=== PATIENT | female | born 1990 | race African-American/Black ===

== ENCOUNTER 2016-08-19 12:02 | Emergency (ER) | payer OTHER ==
[2016-08-19 12:11] VITALS: BP 119/76; PULSE 88; TEMP 98.1; BMI 30.7
--- NOTE | 2016-08-19 12:31 | PDOC ---
*Physical Exam - Vital Signs Last Vital Signs Temp Pulse Resp BP Pulse Ox 98.1 F 88 18 119/76 98 08/19/16 12:08 08/19/16 12:08 08/19/16 12:08 08/19/16 12:08 08/19/16 12:08 ED Treatment Course - LABORATORY CBC & Chemistry Diagram: 08/19/16 12:36 08/19/16 12:36 Medical Decision Making - Medical Decision Making 08/19/16 12:31 Pt seen by Midlevel Provider under my direct supervision Ancillary studies reviewed I agree with plan as outlined by Midlevel Provider *DC/Admit/Observation/Transfer Diagnosis at time of Disposition: Abdominal pain during - Discharge Dispostion Disposition: HOME Condition at time of disposition: Improved - Referrals Referrals: Ayanna Thomas [Primary Care Provider] - - Patient Instructions Printed Discharge Instructions: DI for Abdominal Pain -- Early Additional Instructions: Your potassium was a little low and urine glucose was a little low which means you need to eat small frequent meals throughout the day. I recommend you follow up with her FIELD CASHIER and return to ED if symptoms return or worsen. Otherwise take Tylenol only for discomfort.
[2016-08-19] MEDS ORDERED: SODIUM CHLORIDE 1,000 ML IV STA (12:50)
[2016-08-19] MEDS ORDERED: ACETAMINOPHEN 500 MG TABLET (FP) PO ONE (12:50)
--- NOTE | 2016-08-19 12:50 | PDOC ---
History of Present Illness - General Chief Complaint: Pain Stated Complaint: ABD PAIN, CHEST PAIN Time Seen by Provider: 08/19/16 12:18 History Source: Patient Exam Limitations: No Limitations - History of Present Illness Travel History: No Initial Comments: 08/19/16 12:56 26-year-old female currently 12 weeks presents with lower abdominal pressure and cramping since yesterday. Patient also complaining of mild midsternal chest tightness without wheezing or cough chest pain or shortness of breath. Patient states had an ultrasound done last week with normal findings and has history of asthma but denies any wheezing or use of her inhaler. Patient denies recent travel, recent illness, recent change in diet, urinary complaints, bowel complaints, or vaginal discharge. Timing/Duration: reports: constant Quality: reports: mild, moderate, cramping Pain Radiation: reports: other (mid suprapubic) Aggravating Factors: worse with: None Alleviating Factors: worse with: None Past History - Past Medical History Allergies/Adverse Reactions: Allergies Allergy/AdvReac Type Severity Reaction Status Date / Time shellfish derived Allergy Verified 08/19/16 12:07 Home Medications: Ambulatory Orders Azithromycin [Zithromax 250mg Tablets -] 250 mg PO UTDICT #6 tab 04/14/16 Promethazine/Phenyleph/Codeine [Phenergan VC+Codeine Syrup] 5 ml PO QID PRN # 120 ml MDD 20 mLs 04/14/16 Guaifenesin/Codeine Phosphate [Virtussin AC Liquid] 5 ml PO Q6H PRN #118 ml MDD 20 ml 04/15/16 Asthma: Yes Cancer: No Cardiac Disorders: No Diabetes: No HTN: Yes Seizures: No Thyroid Disease: No Other medical history: lupus - Psycho/Social/Smoking Cessation Hx Anxiety: No Suicidal Ideation: No Smoking Status: No Smoking History: Never smoked Have you smoked in the past 12 months: No Number of Cigarettes Smoked Daily: 0 Information on smoking cessation initiated: No Hx Alcohol Use: No Drug/Substance Use Hx: No Substance Use Type: None Hx Substance Use Treatment: No Patient Lives Alone: No Lives with/in: parents Review of Systems - Review of Systems Able to Perform ROS?: Yes Constitutional: No: Symptoms Reported HEENTM: No: Symptoms Reported Respiratory: No: Symptoms reported Cardiac (ROS): Yes: Chest Tightness ABD/GI: Yes: Abdominal cramping. No: Nausea, Vomiting : No: Symptoms Reported Musculoskeletal: No: Symptoms Reported Integumentary: No: Symptoms Reported Neurological: No: Symptoms reported Endocrine: No: Symptoms Reported Hematologic/Lymphatic: No: Symptoms Reported *Physical Exam - Vital Signs Last Vital Signs Temp Pulse Resp BP Pulse Ox 98.1 F 88 18 119/76 98 08/19/16 12:08 08/19/16 12:08 08/19/16 12:08 08/19/16 12:08 08/19/16 12:08 - Physical Exam General Appearance: Yes: Nourished, Appropriately Dressed. No: Apparent Distress HEENT: negative: Pale Conjunctivae Respiratory/Chest: positive: Lungs Clear, Normal Breath Sounds. negative: Chest Tender, Respiratory Distress, Accessory Muscle Use Cardiovascular: positive: Regular Rhythm, Regular Rate. negative: Murmur Female Pelvic Exam: negative: discharge Gastrointestinal/Abdominal: positive: Normal Bowel Sounds, Soft, Tenderness ( mild epigastric and mid suprapubic, ). negative: Distended, Rebound Musculoskeletal: negative: CVA Tenderness Extremity: positive: Normal Capillary Refill. negative: Pedal Edema Integumentary: positive: Normal Color, Warm Neurologic: positive: Motor Strength 5/5 (ambulatory) ED Treatment Course - LABORATORY CBC & Chemistry Diagram: 08/19/16 12:36 08/19/16 12:36 Medical Decision Making - Medical Decision Making 08/19/16 13:09 Patient 12 weeks complaining of lower suprapubic pressure associated with chest tightness with taking a deep breath but denies shortness of breath cough or fever. Patient on exam had mild epigastric tenderness so short lower suprapubic tenderness without vaginal discharge or bleeding. Patient ordered for labs, urine, IV fluids, Tylenol and ultrasound. 08/19/16 14:35 Laboratory Tests 08/19/16 08/19/16 08/19/16 12:36 12:36 12:55 WBC 4.5 Hgb 10.2 L D Hct 30.0 L D Plt Count 147 D Neutrophils % 71.9 D Sodium 137 Potassium 3.4 L Chloride 104 Carbon Dioxide 22 Anion Gap 11 BUN 8 D Creatinine 0.5 L D Creat Clearance w eGFR > 60 Random Glucose 72 L Calcium 8.6 Total Bilirubin 0.3 D AST 17 D ALT 15 D Alkaline Phosphatase 38 L Total Protein 7.9 Albumin 3.4 Urine Ketones Negative Urine Nitrite Negative Ur Leukocyte Esterase Negative Urine HCG, Qual Positive Patient will be given a lunch tray due to low glucose and an orange juice secondary to low potassium. Ultrasound shows a single viable intrauterine gestation approximately 13 weeks 0 days. patient states feeling better after receiving Tylenol. Patient be discharged home to follow-up with her DISPENSARY ATTENDANT *DC/Admit/Observation/Transfer Diagnosis at time of Disposition: Abdominal pain during Qualifiers: Trimester: first trimester Qualified Code(s): O26.891 - Other specified related conditions, first trimester; R10.9 - Unspecified abdominal pain - Discharge Dispostion Disposition: HOME Condition at time of disposition: Improved - Referrals Referrals: Ayanna Thmoas [Primary Care Provider] - - Patient Instructions Printed Discharge Instructions: DI for Abdominal Pain -- Early Additional Instructions: Your potassium was a little low and urine glucose was a little low which means you need to eat small frequent meals throughout the day. I recommend you follow up with her DISPENSARY ATTENDANT and return to ED if symptoms return or worsen. Otherwise take Tylenol only for discomfort.
[2016-08-19 12:54] LABS: BASOPHIL 0.5 % (0-2.0); EOSINOPHIL 0.8 % (0-4.5); MCH 31.6 pg (25.7-33.7); MCHC 34.2 g/dl (32.0-36.0); MEAN CELL VOLUME 92.5 fl (80-96); MEAN PLT VOLUME 8.6 fl (7.5-11.1); NEUTROPHILS 71.9 % (42.8-82.8); PLATELET COUNT 147 K/MM3 (134-434); RDW 12.9 % (11.6-15.6); WHITE BLOOD COUNT 4.5 K/mm3 (4.0-10.0)
[2016-08-19] MEDS ORDERED: ACETAMINOPHEN 325 MG TABLET (FP) ONE (12:56)
[2016-08-19 13:16] LABS: ALBUMIN 3.4 g/dl (3.4-5.0); ALK PHOS 38 U/L (45-117); ANION GAP 11 (8-16); BILIRUBIN,TOTAL 0.3 mg/dL (0.2-1.0); CALCIUM 8.6 mg/dL (8.5-10.1); CO2 22 mmol/L (21-32); CREATININE 0.5 mg/dL (0.55-1.02); GLUCOSE,RANDOM 72 mg/dL (74-106); SGOT/AST 17 U/L (15-37); SGPT/ALT 15 U/L (12-78); TOT PROT 7.9 g/dl (6.4-8.2)
[2016-08-19 14:27] LABS: URINE APPEARANCE CLEAR; URINE BILIRUBIN NEGATIVE (NEGATIVE); URINE BLOOD NEGATIVE (NEGATIVE); URINE COLOR LTYELLOW; URINE GLUCOSE (UA) NEGATIVE (NEGATIVE); URINE KETONE NEGATIVE (NEGATIVE); URINE LEUK ESTERASE NEGATIVE (NEGATIVE); URINE NITRITE NEGATIVE (NEGATIVE); URINE PROTEIN NEGATIVE (NEGATIVE); URINE UROBILINOGEN NEGATIVE E.U./dl (0.2-1.0)
--- NOTE | 2016-08-23 10:53 | EKG ---
Test Reason : Blood Pressure : / mmHG Vent. Rate : 088 BPM Atrial Rate : 088 BPM P-R Int : 132 ms QRS Dur : 072 ms QT Int : 362 ms P-R-T Axes : 033 -02 031 degrees QTc Int : 438 ms NORMAL SINUS RHYTHM NORMAL ECG WHEN COMPARED WITH ECG OF 20-FEB-2015 11:37, NO SIGNIFICANT CHANGE WAS FOUND Confirmed by GORDY BARRON MD ([id number]) on 08/23/2016 10:53:12 AM Referred By: Confirmed By:GORDY BARRON MD
== END 2016-08-19 14:46 | disposition home or self-care (01) ==
LOC: JER 12:02
PROC: 3E0337Z Introduction of Electrolytic and Water Balance Substance into Peripheral Vein, Percutaneous Approach (ICD-10-PCS; principal; 2016-08-19)
DX: R10.9 Unspecified abdominal pain (principal); Z3A.12 12 weeks gestation of pregnancy
CPT/HCPCS: 36415; 76801-TC; 80053; 81003; 84703; 85025; 87086; 93005; 93010; 96360; 99283-25

== ENCOUNTER 2016-09-23 10:55 | Emergency (ER) | payer OTHER ==
[2016-09-23 10:59] VITALS: BMI 31.3
--- NOTE | 2016-09-23 11:34 | PDOC ---
History of Present Illness - General History Source: Patient Exam Limitations: No Limitations - History of Present Illness Initial Comments: 09/23/16 11:42 The patient is a 26-year-old woman A0, currently approximately 18 weeks , with a past medical history of hypertension, lupus and asthma who presents to the emergency department via walk-in for further evaluation of abdominal pain since this morning. No trauma. She describes her abdominal pain as a crampy in nature, intermittent and non-radiating in nature. She also reports an episode of clear vaginal discharge this morning. No blood. She was in this ED approximately 1 month ago, with similar symptoms. An ultrasound was performed and was normal. She denies associated symptoms of nausea, vomiting, diarrhea, constipation, dysuria, vaginal bleeding. No recent fevers, chills, generalized weakness, cough, chest pain, shortness of breath. Bedside ultrasound performed by Dr. Verito Acuña, revealed positive movement and a heart rate of 153 bpm. Allergies: Shellfish Past Surgical History: Caesarian Section (first child born via at gestational weeks; Social History: Never smoked. No EtOH and recreational drug use. Primary Care Physician: Dr. Ayanna Thomas Full Charge Bookkeeper: Does not recall name but knows he/she is affiliated with [facility]. <Neda Forrest - Last Filed: 09/23/16 13:11> - General History Source: Patient, Old Records Exam Limitations: No Limitations <Vertio Acuña - Last Filed: 09/23/16 13:16> - General Chief Complaint: Pain Stated Complaint: ABD CRAMPING (18 WKS ) Time Seen by Provider: 09/23/16 11:07 Past History <Neda Forrest - Last Filed: 09/23/16 13:11> - Past Medical History Asthma: Yes Cancer: No Cardiac Disorders: No Diabetes: No HTN: Yes Seizures: No Thyroid Disease: No Other medical history: LUPUS - Reproductive History Is Patient Now?: Yes (#): 2 Para: 1 Cervical CA: No Dysfunctional Uterine Bleeding: No Ectopic : No Endometrial CA: No Polycystic Ovaries: No Therapeutic (s) & number: No Tubal Ligation: No - Psycho/Social/Smoking Cessation Hx Anxiety: No Suicidal Ideation: No Smoking Status: No Smoking History: Never smoked Have you smoked in the past 12 months: No Number of Cigarettes Smoked Daily: 0 Hx Alcohol Use: No Drug/Substance Use Hx: No Substance Use Type: None Hx Substance Use Treatment: No <Verito Acuña - Last Filed: 09/23/16 13:16> - Past Medical History Allergies/Adverse Reactions: Allergies Allergy/AdvReac Type Severity Reaction Status Date / Time shellfish derived Allergy Verified 09/23/16 10:59 Home Medications: Ambulatory Orders Vit/Iron Fumarate/FA [ Tablet] 1 each PO DAILY 09/23/16 Terconazole [Terazol 7] 45 gm VG HS #3 cream.appl 09/23/16 Review of Systems - Review of Systems Able to Perform ROS?: Yes Comments:: 09/23/16 11:43 CONSTITUTIONAL: Absent: fever, no chills, no fatigue EYES: Absent: visual changes ENT: Absent: ear pain, no sore throat CARDIOVASCULAR: Absent: chest pain, no palpitations RESPIRATORY: Absent: cough, no SOB GI: Present: Present: Abdominal Pain. Absent: no nausea, no vomiting, no constipation, no diarrhea GENITOURINARY: Present: Vaginal discharge. Absent: dysuria, no frequency, no hematuria MUSCULOSKELETAL: Absent: back pain, no arthralgia, no myalgia SKIN: Absent: rash NEURO: Absent: headache <Neda Forrest - Last Filed: 09/23/16 13:11> *Physical Exam - Vital Signs Last Vital Signs Temp Pulse Resp BP Pulse Ox 98.5 F 97 H 20 127/74 100 09/23/16 10:56 09/23/16 10:56 09/23/16 10:56 09/23/16 10:56 09/23/16 10:56 - Physical Exam Comments: 09/23/16 11:44 GENERAL: Well-appearing, well-nourished. No apparent distress. HEENT: Normocephalic, atraumatic. PERRL, EOM intact. CARDIOVASCULAR: Normal S1, S2. Regular rate and rhythm. PULMONARY: Clear to auscultation bilaterally. ABDOMEN: Gravid. non-distended, non-tender. PELVIC: There is some thick whitish-greenish discharged. No CMT. Os is closed. EXTREMITIES: Normal ROM in all four extremities. No gross deformities. SKIN: Warm, dry. No rash NEUROLOGICAL: No focal neurological deficits. <ForrestNeda garza - Last Filed: 09/23/16 13:11> - Vital Signs Last Vital Signs Temp Pulse Resp BP Pulse Ox 98.5 F 97 H 20 127/74 100 09/23/16 10:56 09/23/16 10:56 09/23/16 10:56 09/23/16 10:56 09/23/16 10:56 <ArianneVerito - Last Filed: 09/23/16 13:16> ED Treatment Course - LABORATORY CBC & Chemistry Diagram: 09/23/16 11:35 09/23/16 11:35 - RADIOLOGY Radiograph Interpretation: 09/23/16 13:11 EXAM: US/OB LIMITED US IMPRESSION: There is a single live intrauterine with measurements corresponding to a gestational age of 18 weeks 2 days. A heart rate of 152 BPM was calculated. The placenta is posterior in location. An adequate amount of amniotic fluid is identified. The fetus is in a breech presentation at the present time. A cervical length of 3.5 cm was also measured. <Forrest,Neda - Last Filed: 09/23/16 13:11> - LABORATORY CBC & Chemistry Diagram: 09/23/16 11:35 09/23/16 11:35 <ArianneVerito - Last Filed: 09/23/16 13:16> Medical Decision Making - Medical Decision Making 09/23/16 12:10 Paged Full Charge Bookkeeper concert singer Dr. Noreen Olson at [phone]. 09/23/16 13:[address] Noreen Olson. <LonNeda - Last Filed: 09/23/16 13:11> - Medical Decision Making 09/23/16 11:38 26-year-old female at approximately 18 weeks 2 para 1 presents to the emergency Department with complaints of lower abdominal cramping and clear vaginal discharge since this morning. Focused bedside u/s shows IUP with FHR of 153. Differential diagnosis includes but is not limited to: Premature rupture of membranes, yeast infection, urinary tract infection, [place] contractions, round ligament pain. Plan: 1. Official obstetric ultrasound to examine the amount of amniotic fluid 2. Urine analysis 3. Obstetric consult for for an test 4. Pain management 5. Observe and reevaluate 09/23/16 13:13 Addendum: Labs were reviewed and are noted in the EMR. Obstetric u/s revealed a viable IUP at 18 weeks with FHR of 152 and a normal amount of amniotic fluid. I have discussed the case with OB concert singer. Likelihood is not PPROM but is yeast infection. Will discharge on terazol. Follow up with OB within 3-5 days. Return to the ED if Sx persist, worsen or new Sx arise. <Verito Acuña - Last Filed: 09/23/16 13:16> *DC/Admit/Observation/Transfer - Attestations Scribe Attestion: 09/23/16 11:44 Documentation prepared by Neda Forrest, acting as medical coding instructor for Verito Acuña MD. <Neda Forrest - Last Filed: 09/23/16 13:11> - Discharge Dispostion Admit: No - Attestations Physician Attestion: 09/23/16 11:40 I, Dr. Verito Acuña, attest that the scribes documentation that appears above has been prepared under my direction and personally reviewed by me in its entirety. I confirmed that the note above accurately reflects all work, treatment, procedures, and medical decision-making performed by me. <Verito Acuña - Last Filed: 09/23/16 13:16> Diagnosis at time of Disposition: Abdominal pain during , Yeast infection - Discharge Dispostion Disposition: HOME Condition at time of disposition: Stable - Prescriptions Prescriptions: Terconazole [Terazol 7] 45 gm VG HS #3 cream.appl - Patient Instructions Printed Discharge Instructions: DI for Vaginal Yeast Infection, DI for Abdominal Pain -- Early Additional Instructions: You are being treated for a vaginal yeast infection. You have been prescribed Terazolplace 1 applicator full in the vagina at nighttime for the next 3 nights. Please drink a lot of water and follow-up with your graphic editor within the next 3 days. Please return to the emergency department if your symptoms persist, worsen, or new symptoms arise.
[2016-09-23 12:13] LABS: BASOPHIL 0.5 % (0-2.0); EOSINOPHIL 2.1 % (0-4.5); MCH 31.8 pg (25.7-33.7); MCHC 34.3 g/dl (32.0-36.0); MEAN CELL VOLUME 92.7 fl (80-96); MEAN PLT VOLUME 8.6 fl (7.5-11.1); NEUTROPHILS 64.2 % (42.8-82.8); PLATELET COUNT 165 K/MM3 (134-434); RDW 13.2 % (11.6-15.6); WHITE BLOOD COUNT 4.3 K/mm3 (4.0-10.0)
[2016-09-23 12:20] LABS: URINE APPEARANCE CLEAR; URINE BILIRUBIN NEGATIVE (NEGATIVE); URINE BLOOD NEGATIVE (NEGATIVE); URINE COLOR YELLOW; URINE GLUCOSE (UA) NEGATIVE (NEGATIVE); URINE KETONE TRACE (NEGATIVE); URINE LEUK ESTERASE NEGATIVE (NEGATIVE); URINE NITRITE NEGATIVE (NEGATIVE); URINE UROBILINOGEN NEGATIVE E.U./dl (0.2-1.0)
[2016-09-23 12:23] LABS: COCKROFT - GAULT 290.8785; CREATININE 0.4 mg/dL (0.55-1.02)
[2016-09-23 12:25] LABS: URINE PROTEIN 1+ (NEGATIVE)
[2016-09-23 12:27] LABS: URINE MUCUS RARE; URINE RBC 1 /hpf (0-3); URINE WBC 1 /hpf (3-5)
[2016-09-23 13:25] VITALS: BP 134/71; PULSE 77; TEMP 97.9
== END 2016-09-23 13:28 | disposition home or self-care (01) ==
LOC: JER 10:55
DX: O98.812 Other maternal infectious and parasitic diseases complicating pregnancy, second trimester (principal); B37.3 Candidiasis of vulva and vagina; Z3A.18 18 weeks gestation of pregnancy
CPT/HCPCS: 36415; 76815; 80048; 81003; 81015; 85025; 86850; 86900; 86901; 87086; 87491; 87591; 99283-25

== ENCOUNTER 2016-11-20 08:15 | Emergency (ER) | payer OTHER ==
[2016-11-20 08:21] VITALS: BMI 31.3
[2016-11-20] MEDS ORDERED: DEXTROSE 5%-LACTATED RINGERS 1,000 ML IV SCH ×3 (10:00→13:01)
[2016-11-20] MEDS ORDERED: ONDANSETRON 4 MG/2 ML VIAL IVPB ONE (10:15)
[2016-11-20 10:23] LABS: BASOPHIL 0.3 % (0-2.0); EOSINOPHIL 0.8 % (0-4.5); MCH 32.2 pg (25.7-33.7); MCHC 34.4 g/dl (32.0-36.0); MEAN CELL VOLUME 93.6 fl (80-96); MEAN PLT VOLUME 8.3 fl (7.5-11.1); NEUTROPHILS 74.6 % (42.8-82.8); PLATELET COUNT 137 K/MM3 (134-434); RDW 12.6 % (11.6-15.6); WHITE BLOOD COUNT 3.6 K/mm3 (4.0-10.0)
[2016-11-20 10:33] VITALS: PULSE 70
[2016-11-20 10:48] LABS: ALBUMIN 2.7 g/dl (3.4-5.0); ALK PHOS 46 U/L (45-117); ANION GAP 10 (8-16); BILIRUBIN,TOTAL 0.3 mg/dL (0.2-1.0); CALCIUM 7.9 mg/dL (8.5-10.1); CO2 24 mmol/L (21-32); CREATININE 0.3 mg/dL (0.55-1.02); GLUCOSE,RANDOM 112 mg/dL (74-106); SGOT/AST 23 U/L (15-37); SGPT/ALT 18 U/L (12-78); TOT PROT 6.7 g/dl (6.4-8.2)
[2016-11-20] MEDS: POTASSIUM CHLORIDE TABS 20 MEQ TABLET.ER (FP) PO SCH ×2 (14:30→16:30)
[2016-11-20 15:52] VITALS: BP 114/75; TEMP 97.8
[2016-11-20 18:27] LABS: ANION GAP 9 (8-16); CALCIUM 8.3 mg/dL (8.5-10.1); CO2 26 mmol/L (21-32); CREATININE 0.4 mg/dL (0.55-1.02); GLUCOSE,RANDOM 81 mg/dL (74-106)
== END 2016-11-20 18:40 | disposition home or self-care (01) ==
LOC: JER 08:15
DX: O26.892 Other specified pregnancy related conditions, second trimester (principal); R10.30 Lower abdominal pain, unspecified; Z3A.26 26 weeks gestation of pregnancy
CPT/HCPCS: 36415; 80048; 80053; 85025; 99282-25

== ENCOUNTER 2017-01-16 18:22 | Emergency (ER) | payer OTHER ==
[2017-01-16 18:29] VITALS: BMI 30.3
--- NOTE | 2017-01-16 19:22 | PDOC ---
History of Present Illness - General Chief Complaint: Pain Stated Complaint: PCP SENT/[facility] Time Seen by Provider: 01/16/17 18:29 - History of Present Illness Initial Comments: 01/16/17 19:15 Ms. Hamlin is a 26 year old female with a significant past medical history of recent vaginal deliver with preeclampsia who presents to the emergency department with a 1 day history of fever with pain to the L aspect of her neck from the base of her skull to her upper shoulder. She also reports 30 minutes of tingling to both upper arms and a "squeezing" sensation. Of note she received an epidural during the . The patient denies chest pain, shortness of breath, headache and dizziness. Denies chills, nausea, vomit, diarrhea and constipation. Denies dysuria, frequency, urgency and hematuria. Allergies: Shellfish Past surgical history: Prior Past History - Past Medical History Allergies/Adverse Reactions: Allergies Allergy/AdvReac Type Severity Reaction Status Date / Time shellfish derived Allergy Verified 01/16/17 18:25 Home Medications: Ambulatory Orders Vit/Iron Fumarate/FA [ Tablet] 1 each PO DAILY 09/23/16 Terconazole [Terazol 7] 45 gm VG HS #3 cream.appl 09/23/16 Asthma: Yes Cancer: No Cardiac Disorders: No Diabetes: No HTN: Yes (border line) Seizures: No Thyroid Disease: No Other medical history: lupus - Reproductive History (#): 2 Para: 1 Cervical CA: No Dysfunctional Uterine Bleeding: No Ectopic : No Endometrial CA: No Polycystic Ovaries: No Therapeutic (s) & number: No Tubal Ligation: No - Psycho/Social/Smoking Cessation Hx Anxiety: No Suicidal Ideation: No Smoking Status: No Smoking History: Never smoked Have you smoked in the past 12 months: No Number of Cigarettes Smoked Daily: 0 Information on smoking cessation initiated: No Hx Alcohol Use: No Drug/Substance Use Hx: No Substance Use Type: None Hx Substance Use Treatment: No Review of Systems - Review of Systems Comments:: 01/16/17 19:22 GENERAL/CONSTITUTIONAL: +Fever reported. No chills. No weakness. HEAD, EYES, EARS, NOSE AND THROAT: No change in vision. No ear pain or discharge. No sore throat. CARDIOVASCULAR: No chest pain or shortness of breath RESPIRATORY: No cough, wheezing, or hemoptysis. GASTROINTESTINAL: No nausea, vomiting, diarrhea or constipation. GENITOURINARY: No dysuria, frequency, or change in urination. MUSCULOSKELETAL: +Pain reported to the left side of her neck with movement. She reports this was somewhat relieved by massage last night but is hurting again. No joint or muscle swelling or pain. No back pain. SKIN: No rash NEUROLOGIC: +Tingling bilaterally to upper arms. No headache, vertigo, loss of consciousness, or change in strength. ENDOCRINE: No increased thirst. No abnormal weight change HEMATOLOGIC/LYMPHATIC: No anemia, easy bleeding, or history of blood clots. ALLERGIC/IMMUNOLOGIC: No hives or skin allergy. *Physical Exam - Vital Signs Last Vital Signs Temp Pulse Resp BP Pulse Ox 99.3 F 86 20 147/102 100 01/16/17 18:25 01/16/17 18:25 01/16/17 18:25 01/16/17 18:25 01/16/17 18:25 - Physical Exam Comments: 01/16/17 19:24 GENERAL: Awake, alert, and fully oriented, in no acute distress HEAD: No signs of trauma, normocephalic, atraumatic EYES: PERRLA, EOMI, sclera anicteric, conjunctiva clear ENT: Auricles normal inspection, hearing grossly normal, nares patent, oropharynx clear without exudates. Moist mucosa NECK: Normal ROM, supple, no lymphadenopathy, JVD, or masses LUNGS: No distress, speaks full sentences, clear to auscultation bilaterally HEART: Regular rate and rhythm, normal S1 and S2, no murmurs, rubs or gallops, peripheral pulses normal and equal bilaterally. ABDOMEN: Soft, nontender, normoactive bowel sounds. No guarding, no rebound. No masses EXTREMITIES: Normal inspection, Normal range of motion, no edema. No clubbing or cyanosis. NEUROLOGICAL: Cranial nerves II through XII grossly intact. Normal speech, normal gait, no focal sensorimotor deficits SKIN: Warm, Dry, normal turgor, no rashes or lesions noted. Medical Decision Making - Medical Decision Making 01/16/17 19:25 Patient signed out after initial history / exam to oncoming team for further care. *DC/Admit/Observation/Transfer Diagnosis at time of Disposition: Neck pain
[2017-01-16 19:27] LABS: BASOPHIL 0.6 % (0-2.0); MCH 31.4 pg (25.7-33.7); MCHC 33.3 g/dl (32.0-36.0); MEAN CELL VOLUME 94.1 fl (80-96); MEAN PLT VOLUME 8.4 fl (7.5-11.1); NEUTROPHILS 51.2 % (42.8-82.8); PLATELET COUNT 213 K/MM3 (134-434); RDW 12.9 % (11.6-15.6); WHITE BLOOD COUNT 3.9 K/mm3 (4.0-10.0)
[2017-01-16 19:47] LABS: MAGNESIUM 1.4 mg/dL (1.8-2.4); URIC ACID 5.3 mg/dL (2.6-7.2)
[2017-01-16 19:50] LABS: ANION GAP 8 (8-16); BILIRUBIN,TOTAL 0.4 mg/dL (0.2-1.0); CALCIUM 9.2 mg/dL (8.5-10.1); CO2 27 mmol/L (21-32); CREATININE 0.6 mg/dL (0.55-1.02); GLUCOSE,RANDOM 90 mg/dL (74-106); SGOT/AST 28 U/L (15-37); SGPT/ALT 24 U/L (12-78); TOT PROT 7.7 g/dl (6.4-8.2)
[2017-01-16 19:51] LABS: ALK PHOS 75 U/L (45-117)
[2017-01-16] MEDS ORDERED: POTASSIUM CHLORIDE TABS 20 MEQ TABLET.ER (FP) PO ONE ×4 (20:16→22:20)
[2017-01-16 20:34] LABS: URINE APPEARANCE CLEAR; URINE BILIRUBIN NEGATIVE (NEGATIVE); URINE BLOOD 3+ (NEGATIVE); URINE COLOR LTYELLOW; URINE GLUCOSE (UA) NEGATIVE (NEGATIVE); URINE KETONE NEGATIVE (NEGATIVE); URINE LEUK ESTERASE TRACE (NEGATIVE); URINE NITRITE NEGATIVE (NEGATIVE); URINE UROBILINOGEN NEGATIVE mg/dL (0.2-1.0)
[2017-01-16 20:43] LABS: URINE PROTEIN 1+ (NEGATIVE)
[2017-01-16 20:49] LABS: CALCIUM OXALATE CRYSTALS RARE /hpf (NONE SEEN); URINE BACTERIA RARE /hpf (NONE SEEN); URINE MUCUS RARE; URINE RBC 4 /hpf (0-3); URINE WBC 6 /hpf (3-5)
[2017-01-16] MEDS ORDERED: KCL 10 MEQ IVPB 100 ML IVPB ONE ×2 (21:10→22:20)
[2017-01-16] MEDS ORDERED: CEPHALEXIN MONOHYDRATE 500 MG CAPSULE (UD) PO ONE (21:18)
[2017-01-16] MEDS: KCL 10 MEQ IVPB 100 ML IVPB SCH ×2 (21:21→22:19)
--- NOTE | 2017-01-16 22:00 | PDOC ---
Attending Attestation - Resident Resident Name: Dante Wen - ED Attending Attestation I have performed the following: I have examined & evaluated the patient, The case was reviewed & discussed with the resident, I agree w/resident's findings & plan, Exceptions are as noted - HPI HPI: 26 yo F recently , discharged home yesterday presents with neck pain, fever, arm pain. she sttaes that she has been having tingling to both arms/ hands and a squeezing sensation to the R upper arm. She states she received an epidural during her delivery, and was injected twice. She denies cough, cp, SOB , leg swelling. She had preeclampsia during her , and notes that the swelling in her legs improved after deliver. Denies headache, weakness. - Physicial Exam PE: GENERAL: Awake, alert, and fully oriented, in no acute distress HEAD: No signs of trauma EYES: PERRLA, EOMI, sclera anicteric, conjunctiva clear ENT: Auricles normal inspection, hearing grossly normal, nares patent, oropharynx clear without exudates. Moist mucosa NECK: Normal ROM, supple, no lymphadenopathy, JVD, or masses LUNGS: Breath sounds equal, clear to auscultation bilaterally. No wheezes, and no crackles HEART: Regular rate and rhythm, normal S1 and S2, no murmurs, rubs or gallops ABDOMEN: Soft, nontender, normoactive bowel sounds. No guarding, no rebound. No masses EXTREMITIES: Normal range of motion, no edema. No clubbing or cyanosis. No cords, erythema, or tenderness NEUROLOGICAL: Cranial nerves II through XII grossly intact. Normal speech, normal gait. Motor and sensation intact. SKIN: Warm, Dry, normal turgor, no rashes or lesions noted. SPINE: No midline tenderness. +Tenderness to paraspinal soft tissue on L side, cervical region. No skin changes overlying the entire spine. - Medical Decision Making Patient with neck pain, tingling, fever, elevated BP s/p recent vaginal delivery. DDx includes UTI, preeclampsia, spinal epidural abscess. Will obtain preeclampsia labs, UA, and plan for CT c-spine to further evaluate. Endorsed to Dr. Weber at 7pm shift change.
[2017-01-16] MEDS ORDERED: morphine CARPU-JECT 2 MG/1 ML DISP.SYRIN IVPUSH ONE (22:19)
[2017-01-16] MEDS ORDERED: morphine CARPU-JECT 10 MG/1 ML DISP.SYRIN ONE (22:20)
[2017-01-17] MEDS ORDERED: CEPHALEXIN MONOHYDRATE 250 MG CAPSULE (FP) ONE (00:48)
[2017-01-17] MEDS ORDERED: CEFTRIAXONE 50 ML ONE (01:01)
[2017-01-17] MEDS ORDERED: METOCLOPRAMIDE HCL INJECTION 10 MG/2 ML VIAL IVPUSH ONE (01:51)
[2017-01-17] MEDS ORDERED: POTASSIUM CHLORIDE TABS 20 MEQ TABLET.ER (FP) PO ONE ×2 (01:51→02:29)
[2017-01-17] MEDS ORDERED: METOCLOPRAMIDE HCL INJECTION 10 MG/2 ML VIAL ONE (01:54)
--- NOTE | 2017-01-17 02:00 | PDOC ---
*Physical Exam - Vital Signs Last Vital Signs Temp Pulse Resp BP Pulse Ox 99.3 F 86 20 147/102 100 01/16/17 18:25 01/16/17 18:25 01/16/17 18:25 01/16/17 18:25 01/16/17 18:25 ED Treatment Course - LABORATORY CBC & Chemistry Diagram: 01/16/17 19:00 01/17/17 00:57 - ADDITIONAL ORDERS Additional order review: Laboratory Results 01/17/17 01/16/17 01/16/17 00:57 20:24 19:00 Sodium Potassium 3.2 L Chloride Carbon Dioxide Anion Gap BUN Creatinine Creat Clearance w eGFR Random Glucose Uric Acid 5.3 Calcium Magnesium 1.4 L Total Bilirubin AST ALT Alkaline Phosphatase Total Protein Albumin Urine Color Ltyellow Urine Appearance Clear Urine pH 7.0 D Ur Specific [place] 1.015 Urine Protein 1+ H Urine Glucose (UA) Negative Urine Ketones Negative Urine Blood 3+ H Urine Nitrite Negative Urine Bilirubin Negative Urine Urobilinogen Negative Ur Leukocyte Esterase Trace Urine RBC 4 Urine WBC 6 Ur Epithelial Cells Rare Calcium Oxalate Crystal Rare Urine Bacteria Rare Urine Mucus Rare 01/16/17 19:00 Sodium 139 Potassium 2.8 L* Chloride 104 Carbon Dioxide 27 Anion Gap 8 BUN 6 L D Creatinine 0.6 D Creat Clearance w eGFR > 60 Random Glucose 90 Uric Acid Calcium 9.2 Magnesium Total Bilirubin 0.4 D AST 28 D ALT 24 D Alkaline Phosphatase 75 D Total Protein 7.7 Albumin 3.0 L Urine Color Urine Appearance Urine pH Ur Specific [place] Urine Protein Urine Glucose (UA) Urine Ketones Urine Blood Urine Nitrite Urine Bilirubin Urine Urobilinogen Ur Leukocyte Esterase Urine RBC Urine WBC Ur Epithelial Cells Calcium Oxalate Crystal Urine Bacteria Urine Mucus 01/16/17 19:00 RBC 3.74 D MCV 94.1 MCHC 33.3 RDW 12.9 MPV 8.4 Neutrophils % 51.2 D Lymphocytes % 34.0 D Monocytes % 12.2 H D Eosinophils % 2.0 D Basophils % 0.6 - Medications Given in the ED: ED Medications Discontinued Medications Generic Name Dose Route Start Last Admin Trade Name Freq PRN Reason Stop Dose Admin Ceftriaxone Sodium 1,000 mg 01/17/17 00:49 01/17/17 01:06 Rocephin - IVPB 01/17/17 00:50 1,000 mg ONCE ONE Administration Cephalexin HCl 500 mg 01/16/17 21:18 01/17/17 00:50 Keflex - PO 01/16/17 21:19 Not Given ONCE ONE Potassium Chloride 100 mls @ 100 mls/hr 01/16/17 20:30 01/16/17 22:19 Potassium Chloride 10 Meq Premix Ivpb - IVPB 01/16/17 22:29 100 mls/hr Q60M GUY Administration Morphine Sulfate 4 mg 01/16/17 22:19 01/16/17 22:20 Morphine Injection - IVPUSH 01/16/17 22:20 4 mg ONCE ONE Administration Potassium Chloride 40 meq 01/16/17 20:16 01/16/17 21:21 K-Dur - PO 01/16/17 20:17 40 meq ONCE ONE Administration Potassium Chloride 40 meq 01/16/17 22:16 01/16/17 22:28 K-Dur - PO 01/16/17 22:17 40 meq ONCE ONE Administration Medical Decision Making - Medical Decision Making 01/17/17 01:56 Pt feeling better. Numbness of hands and pain to back of neck have resolved after repletion of Potassium. Pt to be discharged. Advised to drink a glass of orange juice or a banana daily for a few days. *DC/Admit/Observation/Transfer Diagnosis at time of Disposition: Neck pain, Hypokalemia UTI (urinary tract infection) Qualifiers: Urinary tract infection type: site unspecified Hematuria presence: without hematuria Qualified Code(s): N39.0 - Urinary tract infection, site not specified - Referrals Referrals: Ayanna Thomas [Primary Care Provider] - - Patient Instructions Printed Discharge Instructions: DI for Hypokalemia, DI for Urinary Tract Infection (UTI) Additional Instructions: Please drink a glass of OJ or eat a banana daily for a few days. Take antibiotic as directed. - Post Discharge Activity
[2017-01-17 03:05] VITALS: BP 114/75; PULSE 82; TEMP 98.6
--- NOTE | 2017-01-19 09:07 | EKG ---
Test Reason : Blood Pressure : / mmHG Vent. Rate : 073 BPM Atrial Rate : 073 BPM P-R Int : 138 ms QRS Dur : 084 ms QT Int : 386 ms P-R-T Axes : 046 -26 039 degrees QTc Int : 425 ms NORMAL SINUS RHYTHM LEFT AXIS DEVIATION WHEN COMPARED WITH ECG OF 19-AUG-2016 12:16, NO SIGNIFICANT CHANGE WAS FOUND Confirmed by HUSEYIN SCOTT MD ([id number]) on 01/19/2017 9:06:48 AM Referred By: Confirmed By:HUSEYIN SCOTT MD
== END 2017-01-17 03:05 | disposition home or self-care (01) ==
LOC: JER 18:22
PROC: 3E0337Z Introduction of Electrolytic and Water Balance Substance into Peripheral Vein, Percutaneous Approach (ICD-10-PCS; principal; 2017-01-16)
PROC: 3E03329 Introduction of Other Anti-infective into Peripheral Vein, Percutaneous Approach (ICD-10-PCS; 2017-01-16)
PROC: 3E033GC Introduction of Other Therapeutic Substance into Peripheral Vein, Percutaneous Approach (ICD-10-PCS; 2017-01-16)
DX: N39.0 Urinary tract infection, site not specified (principal); E87.6 Hypokalemia; M54.2 Cervicalgia
CPT/HCPCS: 36415; 80053; 81003; 81015; 83735; 84132; 84550; 85025; 96365; 96375; 99283-25

== ENCOUNTER 2017-05-14 20:40 | Observation (INO) | payer OTHER ==
[2017-05-14 21:26] VITALS: BMI 30.7
--- NOTE | 2017-05-14 21:38 | PDOC ---
History of Present Illness <Da George - Last Filed: 05/14/17 22:58> - History of Present Illness Initial Comments: 05/14/17 21:32 "The patient is a 27 year old female, with a significant past medical history of asthma, lupus, pre-hypertension, who presents to the emergency department s/ p taking approx. 10-20 Excedrin with wine. Denies any other coingestions. She estimates that she took the pills at around 7PM. The patients reports she is going through a difficult time after her most recent and states she was attempting to harm herself. Pt reports increased stressors at home, including having to take care of her premature child and difficulties with her children's father. She reports prior suicide attempts and has seen psych in the past. Pt currently endorses SI. Pt denies any complaints at this time. Denies CP/SOB. Denies JUNG/N/V. Denies abd pain, nausea, vomiting, diarrhea or constipation. Allergies: Shellfish Past surgical history: Primary Care Physician: Ayanna Thomas <Shane Pearl - Last Filed: 05/14/17 23:52> - General Chief Complaint: Overdose Stated Complaint: Psychiatric Time Seen by Provider: 05/14/17 21:01 Past History <Da George - Last Filed: 05/14/17 22:58> - Past Medical History Asthma: Yes Cancer: No Cardiac Disorders: No COPD: No Diabetes: No HTN: Yes Psychiatric Problems: Yes (depression) Seizures: No Thyroid Disease: No - Reproductive History (#): 2 Para: 1 Cervical CA: No Dysfunctional Uterine Bleeding: No Ectopic : No Endometrial CA: No Polycystic Ovaries: No Therapeutic (s) & number: No Tubal Ligation: No - Suicide/Smoking/Psychosocial Hx Smoking Status: No Smoking History: Never smoked Have you smoked in the past 12 months: No Number of Cigarettes Smoked Daily: 0 Information on smoking cessation initiated: No Hx Alcohol Use: No Drug/Substance Use Hx: No Substance Use Type: None Hx Substance Use Treatment: No <Shane Pearl - Last Filed: 05/14/17 23:52> - Past Medical History Allergies/Adverse Reactions: Allergies Allergy/AdvReac Type Severity Reaction Status Date / Time shellfish derived Allergy Verified 05/14/17 21:26 Home Medications: Ambulatory Orders Cephalexin Monohydrate [Keflex -] 500 mg PO BID #20 capsule 01/17/17 Review of Systems - Review of Systems Comments:: 05/14/17 21:36 " GENERAL/CONSTITUTIONAL: No fever or chills. No weakness. HEAD, EYES, EARS, NOSE AND THROAT: No change in vision. No ear pain or discharge. No sore throat. CARDIOVASCULAR: No chest pain or shortness of breath. RESPIRATORY: No cough, wheezing, or hemoptysis. GASTROINTESTINAL: No nausea, vomiting, diarrhea or constipation. GENITOURINARY: No dysuria, frequency, or change in urination. MUSCULOSKELETAL: No joint or muscle swelling or pain. No neck or back pain. SKIN: No rash NEUROLOGIC: No headache, vertigo, loss of consciousness, or change in strength/ sensation. ENDOCRINE: No increased thirst. No abnormal weight change. HEMATOLOGIC/LYMPHATIC: No anemia, easy bleeding, or history of blood clots. ALLERGIC/IMMUNOLOGIC: No hives or skin allergy. " <Shane Pearl - Last Filed: 05/14/17 23:52> *Physical Exam - Vital Signs Last Vital Signs Temp Pulse Resp BP Pulse Ox 98.0 F 78 18 130/90 100 05/14/17 20:58 05/14/17 20:58 05/14/17 20:58 05/14/17 20:58 05/14/17 20:58 <Da George - Last Filed: 05/14/17 22:58> - Vital Signs Last Vital Signs Temp Pulse Resp BP Pulse Ox 98.0 F 78 18 130/90 100 05/14/17 20:58 05/14/17 20:58 05/14/17 20:58 05/14/17 20:58 05/14/17 20:58 - Physical Exam Comments: 05/14/17 21:36 "GENERAL: + Tearful. Awake, alert, and fully oriented, in no acute distress HEAD: No signs of trauma EYES: PERRLA, EOMI, sclera anicteric, conjunctiva clear ENT: Auricles normal inspection, hearing grossly normal, nares patent, oropharynx clear without exudates. Moist mucosa NECK: Nontender, no stepoffs, Normal ROM, supple, no lymphadenopathy, JVD, or masses LUNGS: Breath sounds equal, clear to auscultation bilaterally. No wheezes , and no crackles HEART: Regular rate and rhythm, normal S1 and S2, no murmurs, rubs or gallops ABDOMEN: Soft, nontender, normoactive bowel sounds. No guarding, no rebound. No masses EXTREMITIES: Normal range of motion, no edema. No clubbing or cyanosis. No cords , erythema, or tenderness NEUROLOGICAL: Cranial nerves II through XII intact. 5/5 strength and sensation in all extremities, Normal speech, normal gait SKIN: Warm, Dry, normal turgor, no rashes or lesions noted. " <Shane Pearl - Last Filed: 05/14/17 23:52> ED Treatment Course - LABORATORY CBC & Chemistry Diagram: 05/14/17 21:38 05/14/17 21:38 - ADDITIONAL ORDERS Additional order review: Laboratory Results 05/14/17 05/14/17 05/14/17 21:45 21:45 21:38 Sodium Potassium Chloride Carbon Dioxide Anion Gap BUN Creatinine Creat Clearance w eGFR Random Glucose Lactic Acid Calcium Total Bilirubin AST ALT Alkaline Phosphatase Total Protein Albumin TSH 4.78 H D Urine Color Ltyellow Urine Appearance Clear Urine pH 7.0 Ur Specific [place] 1.013 Urine Protein 1+ H Urine Glucose (UA) Negative Urine Ketones Negative Urine Blood Negative Urine Nitrite Negative Urine Bilirubin Negative Urine Urobilinogen Negative Urine WBC (Auto) 7 Urine RBC (Auto) <1 Ur Epithelial Cells Rare Urine Bacteria Rare Urine Mucus Rare Salicylates Opiates Screen Negative Methadone Screen Negative Acetaminophen Barbiturate Screen Negative Phencyclidine Screen Negative Ur Amphetamines Screen Negative MDMA (Ecstasy) Screen Negative Benzodiazepines Screen Negative Cocaine Screen Negative U Marijuana (THC) Screen Negative 05/14/17 05/14/17 05/14/17 21:38 21:38 21:38 Sodium 140 Potassium 3.3 L Chloride 107 Carbon Dioxide 25 Anion Gap 8 BUN 11 D Creatinine 0.8 D Creat Clearance w eGFR > 60 Random Glucose 99 Lactic Acid 0.9 Calcium 8.5 Total Bilirubin 0.3 D AST 19 D ALT 15 D Alkaline Phosphatase 47 D Total Protein 8.1 Albumin 3.7 D TSH Urine Color Urine Appearance Urine pH Ur Specific [place] Urine Protein Urine Glucose (UA) Urine Ketones Urine Blood Urine Nitrite Urine Bilirubin Urine Urobilinogen Urine WBC (Auto) Urine RBC (Auto) Ur Epithelial Cells Urine Bacteria Urine Mucus Salicylates 4.827 Opiates Screen Methadone Screen Acetaminophen 6.321 L Barbiturate Screen Phencyclidine Screen Ur Amphetamines Screen MDMA (Ecstasy) Screen Benzodiazepines Screen Cocaine Screen U Marijuana (THC) Screen 05/14/17 21:38 RBC 3.67 MCV 91.9 MCHC 34.3 RDW 13.2 MPV 8.8 Neutrophils % 61.6 D Lymphocytes % 28.0 Monocytes % 7.4 Eosinophils % 2.3 Basophils % 0.7 <Da George - Last Filed: 05/14/17 22:58> - LABORATORY CBC & Chemistry Diagram: 05/14/17 21:38 05/14/17 21:38 <Shane Pearl - Last Filed: 05/14/17 23:52> Medical Decision Making - Medical Decision Making 05/14/17 21:36 27 F with overdose on excedrin (tylenol, aspirin, caffeine). Pt reports maximum of 20 tablets were taken. This comes out to 5g tylenol, 5g aspirin, and 1.3g caffeine. Pt well appearing at this time. Will check tylenol and salicylate levels now and at 4 hours. - Labs - 4hr tylenol and salicylate levels - Administer NAC if needed - 1 to 1 observation - Psych consult when medically cleared <Shane Pearl - Last Filed: 05/14/17 23:52> *DC/Admit/Observation/Transfer - Attestations Scribe Attestion: 05/14/17 22:58 Documentation prepared by Da George, acting as biomedical engineering professor for Shane Pearl MD. <Da George - Last Filed: 05/14/17 22:58> - Discharge Dispostion Admit: Yes - Attestations Physician Attestion: 05/14/17 23:51 I, Dr. Shane Pearl MD, attest that this document has been prepared under my direction and personally reviewed by me in its entirety. I further attest, that it accurately reflects all work, treatment, procedures and medical decision -making performed by me. <Shane Pearl - Last Filed: 05/14/17 23:52> Diagnosis at time of Disposition: Overdose
[2017-05-14 21:57] LABS: BASO % 0.7 % (0-2.0); EOS # 0.1 # (0-4.5); EOS % 2.3 % (0-4.5); MCH 31.5 pg (25.7-33.7); MCHC 34.3 g/dl (32.0-36.0); MEAN CELL VOLUME 91.9 fl (80-96); MEAN PLT VOLUME 8.8 fl (7.5-11.1); MONO # 0.3 # (3.8-10.2); NEUT # 2.1 # (42.8-82.8); NEUT % 61.6 % (42.8-82.8); PLATELET COUNT 179 K/MM3 (134-434); RDW 13.2 % (11.6-15.6); WHITE BLOOD COUNT 3.4 K/mm3 (4.0-10.0)
[2017-05-14 22:20] LABS: ALBUMIN 3.7 g/dl (3.4-5.0); ALK PHOS 47 U/L (45-117); ANION GAP 8 (8-16); BILIRUBIN,TOTAL 0.3 mg/dL (0.2-1.0); CALCIUM 8.5 mg/dL (8.5-10.1); CO2 25 mmol/L (21-32); CREATININE 0.8 mg/dL (0.55-1.02); GLUCOSE,RANDOM 99 mg/dL (74-106); SGOT/AST 19 U/L (15-37); SGPT/ALT 15 U/L (12-78); TOT PROT 8.1 g/dl (6.4-8.2)
[2017-05-14 22:23] LABS: URINE APPEARANCE CLEAR; URINE BILIRUBIN NEGATIVE (NEGATIVE); URINE BLOOD NEGATIVE (NEGATIVE); URINE COLOR LTYELLOW; URINE GLUCOSE (UA) NEGATIVE (NEGATIVE); URINE KETONE NEGATIVE (NEGATIVE); URINE LEUK ESTERASE TRACE (NEGATIVE); URINE NITRITE NEGATIVE (NEGATIVE); URINE UROBILINOGEN NEGATIVE mg/dL (0.2-1.0)
[2017-05-14 22:24] LABS: SALICYLATE 4.827 mg/dl (0.0-30.0)
[2017-05-14 22:31] LABS: URINE MARIJUANA THC NEGATIVE ng/ml (CUTOFF=50)
[2017-05-14 22:33] LABS: URINE PROTEIN 1+ (NEGATIVE)
[2017-05-14 22:36] LABS: URINE BACTERIA RARE /hpf (NONE SEEN); URINE MUCUS RARE; URINE RBC <1 /hpf (0-3); URINE WBC 7 /hpf (3-5)
--- NOTE | 2017-05-15 00:24 | HP ---
CHIEF COMPLAINT: suicidal attempt PCP: Martha Jackson HISTORY OF PRESENT ILLNESS: 27 year old AA female with Pmhx of lupus and asthma presented to ED fter she tried to swallow 10 tab Excedrin. was admitted to obs fr further evaluation. in Ed patient reports that she feels over whelmed by the holidays, but she denies any depression ,or anxiety. she reports previous attemept by swallowing anti depressant meds. She denies any visual or auditory halucinations, she denies thinking of hearting other peope. She does not have difficulty falling asleep, she wake up multiple times at night due to her 4 month old baby. She reports feeling fatigue and out of energy some days. She reports drinking bottle of wine. She denies any other symptoms, Denies any headache, blurry vision , chest pain, sob , palpitation, abdominal pain , N/V/D/C. she denies any urinary symptoms. ER course was notable for: (1) Acohol level (2)Urine toxicology (3) Acetaminophen, salicylic acid level Recent Travel:denies PAST MEDICAL HISTORY: Lupus, Asthma PAST SURGICAL HISTORY: Social History: Smoking:denies Alcohol:bottle of wine every 2 weeks Drugs: tried marijuana as teenage. Family History: Allergies shellfish derived Allergy (Verified 05/14/17 21:26) HOME MEDICATIONS: Home Medications Medication Instructions Recorded Cephalexin Monohydrate [Keflex -] 500 mg PO BID #20 capsule 01/17/17 REVIEW OF SYSTEMS CONSTITUTIONAL: Absent: fever, chills, diaphoresis, generalized weakness, malaise, loss of appetite, weight change HEENT: Absent: rhinorrhea, nasal congestion, throat pain, throat swelling, difficulty swallowing, mouth swelling, ear pain, eye pain, visual changes CARDIOVASCULAR: Absent: chest pain, syncope, palpitations, irregular heart rate, lightheadedness , peripheral edema RESPIRATORY: Absent: cough, shortness of breath, dyspnea with exertion, orthopnea, wheezing, stridor, hemoptysis GASTROINTESTINAL: Absent: abdominal pain, abdominal distension, nausea, vomiting, diarrhea, constipation, melena, hematochezia GENITOURINARY: Absent: dysuria, frequency, urgency, hesitancy, hematuria, flank pain, genital pain MUSCULOSKELETAL: Absent: myalgia, arthralgia, joint swelling, back pain, neck pain SKIN: Absent: rash, itching, pallor HEMATOLOGIC/IMMUNOLOGIC: Absent: easy bleeding, easy bruising, lymphadenopathy, frequent infections ENDOCRINE: Absent: unexplained weight gain, unexplained weight loss, heat intolerance, cold intolerance NEUROLOGIC: Absent: headache, focal weakness or paresthesias, dizziness, unsteady gait, seizure, mental status changes, bladder or bowel incontinence PSYCHIATRIC: Absent: anxiety, depression, suicidal or homicidal ideation, hallucinations. PHYSICAL EXAMINATION Vital Signs - 24 hr 05/14/17 20:58 Temperature 98.0 F Pulse Rate 78 Respiratory 18 Rate Blood Pressure 130/90 O2 Sat by Pulse 100 Oximetry (%) GENERAL: Awake, alert, and fully oriented, in no acute distress. HEAD: Normal with no signs of trauma. EYES: Pupils equal, round and reactive to light,sclera anicteric, conjunctiva clear. EARS, NOSE, THROAT: Moist mucous membranes. NECK: Normal range of motion, supple without lymphadenopathy, JVD, LUNGS: Breath sounds equal, clear to auscultation bilaterally. No wheezes, and no crackles. No accessory muscle use. HEART: Regular rate and rhythm, normal S1 and S2 without murmur, rub or gallop. ABDOMEN: Soft, nontender, not distended, normoactive bowel sounds, no guarding, no rebound, derness. LOWER EXTREMITIES: 2+ pulses, warm, well-perfused. No calf tenderness. No peripheral edema. NEUROLOGICAL: Cranial nerves II-XII intact. Normal speech. Normal gait. PSYCHIATRIC: Cooperative. Good eye contact. Appropriate mood and affect. SKIN: Warm, dry, no rashes or lesions noted, normal capillary refill. Laboratory Results - last 24 hr 05/14/17 05/14/17 05/14/17 21:38 21:38 21:38 WBC 3.4 L RBC 3.67 Hgb 11.6 Hct 33.8 MCV 91.9 MCH 31.5 MCHC 34.3 RDW 13.2 Plt Count 179 MPV 8.8 Neutrophils % 61.6 D Lymphocytes % 28.0 Monocytes % 7.4 Eosinophils % 2.3 Basophils % 0.7 Sodium 140 Potassium 3.3 L Chloride 107 Carbon Dioxide 25 Anion Gap 8 BUN 11 D Creatinine 0.8 D Creat Clearance w eGFR > 60 Random Glucose 99 Lactic Acid 0.9 Calcium 8.5 Total Bilirubin 0.3 D AST 19 D ALT 15 D Alkaline Phosphatase 47 D Total Protein 8.1 Albumin 3.7 D TSH Urine Color Urine Appearance Urine pH Ur Specific [place] Urine Protein Urine Glucose (UA) Urine Ketones Urine Blood Urine Nitrite Urine Bilirubin Urine Urobilinogen Urine WBC (Auto) Urine RBC (Auto) Ur Epithelial Cells Urine Bacteria Urine Mucus Salicylates Opiates Screen Methadone Screen Acetaminophen Barbiturate Screen Phencyclidine Screen Ur Amphetamines Screen MDMA (Ecstasy) Screen Benzodiazepines Screen Cocaine Screen U Marijuana (THC) Screen 05/14/17 05/14/17 05/14/17 21:38 21:38 21:45 WBC RBC Hgb Hct MCV MCH MCHC RDW Plt Count MPV Neutrophils % Lymphocytes % Monocytes % Eosinophils % Basophils % Sodium Potassium Chloride Carbon Dioxide Anion Gap BUN Creatinine Creat Clearance w eGFR Random Glucose Lactic Acid Calcium Total Bilirubin AST ALT Alkaline Phosphatase Total Protein Albumin TSH 4.78 H D Urine Color Ltyellow Urine Appearance Clear Urine pH 7.0 Ur Specific [place] 1.013 Urine Protein 1+ H Urine Glucose (UA) Negative Urine Ketones Negative Urine Blood Negative Urine Nitrite Negative Urine Bilirubin Negative Urine Urobilinogen Negative Urine WBC (Auto) 7 Urine RBC (Auto) <1 Ur Epithelial Cells Rare Urine Bacteria Rare Urine Mucus Rare Salicylates 4.827 Opiates Screen Methadone Screen Acetaminophen 6.321 L Barbiturate Screen Phencyclidine Screen Ur Amphetamines Screen MDMA (Ecstasy) Screen Benzodiazepines Screen Cocaine Screen U Marijuana (THC) Screen 05/14/17 21:45 WBC RBC Hgb Hct MCV MCH MCHC RDW Plt Count MPV Neutrophils % Lymphocytes % Monocytes % Eosinophils % Basophils % Sodium Potassium Chloride Carbon Dioxide Anion Gap BUN Creatinine Creat Clearance w eGFR Random Glucose Lactic Acid Calcium Total Bilirubin AST ALT Alkaline Phosphatase Total Protein Albumin TSH Urine Color Urine Appearance Urine pH Ur Specific [place] Urine Protein Urine Glucose (UA) Urine Ketones Urine Blood Urine Nitrite Urine Bilirubin Urine Urobilinogen Urine WBC (Auto) Urine RBC (Auto) Ur Epithelial Cells Urine Bacteria Urine Mucus Salicylates Opiates Screen Negative Methadone Screen Negative Acetaminophen Barbiturate Screen Negative Phencyclidine Screen Negative Ur Amphetamines Screen Negative MDMA (Ecstasy) Screen Negative Benzodiazepines Screen Negative Cocaine Screen Negative U Marijuana (THC) Screen Negative CBC, BMP 05/14/17 21:38 05/14/17 21:38 ASSESSMENT/PLAN: 27 year old AA female with Pmhx of lupus and asthma presented to ED fter she tried to swallow 10 tab Excedrin. was admitted to obs fr further evaluation. # suicidal ideation due to depression vs psychosis unlikely - swallow OTC Exedrin 10 tab - previous attempt with anti depression meds -on no meds right now - psych consult - admit to obs - accompanied by her mom - 1 on 1 observation - Alcohol level - urine toxicology - Acetaminophen level - TSH 4.74 , - Ft4 # lupus -on no treatment - no recent flare up # Asthma , - on no exacerbation - on no meds # Hypokalemia , * repeat BMP in AM # FEN - on no fluids -E: WNL - N regular diet # proph, -DVT: low risk , SCDs both legs , early ambulation # Dispo, - Admit to obs Visit type - Emergency Visit Emergency Visit: Yes ED Registration Date: 05/14/17 Care time: The patient presented to the Emergency Department on the above date and was hospitalized for further evaluation of their emergent condition. - New Patient This patient is new to me today: Yes Date on this admission: 05/15/17 - Critical Care Critical Care patient: No
--- NOTE | 2017-05-15 06:35 | PN ---
Teaching Attending Note Name of Resident: Terry Trevino ATTENDING PHYSICIAN STATEMENT I saw and evaluated the patient. I reviewed the resident's note and discussed the case with the resident. I agree with the resident's findings and plan as documented. SUBJECTIVE: OBJECTIVE: ASSESSMENT AND PLAN: observation psychiatry evaluation monitor toxicology level repeat acetaminophen repeat salicilate level contac poison control if level are above the normal
[2017-05-15 06:50] LABS: BASO % 0.6 % (0-2.0); EOS # 0.1 # (0-4.5); EOS % 3.1 % (0-4.5); LYMPH # 1.1 (8-40); MCH 31.7 pg (25.7-33.7); MCHC 34.2 g/dl (32.0-36.0); MEAN CELL VOLUME 92.8 fl (80-96); MEAN PLT VOLUME 9.3 fl (7.5-11.1); MONO # 0.5 # (3.8-10.2); NEUT # 1.1 # (42.8-82.8); NEUT % 39.6 % (42.8-82.8); PLATELET COUNT 193 K/MM3 (134-434); RDW 13.2 % (11.6-15.6); WHITE BLOOD COUNT 2.8 K/mm3 (4.0-10.0)
[2017-05-15 07:22] LABS: ALBUMIN 3.5 g/dl (3.4-5.0); ALK PHOS 47 U/L (45-117); ANION GAP 11 (8-16); BILIRUBIN,TOTAL 0.3 mg/dL (0.2-1.0); CO2 22 mmol/L (21-32); CREATININE 0.8 mg/dL (0.55-1.02); GLUCOSE,RANDOM 81 mg/dL (74-106); SGOT/AST 19 U/L (15-37); SGPT/ALT 14 U/L (12-78); TOT PROT 7.7 g/dl (6.4-8.2)
--- NOTE | 2017-05-15 11:15 | CON.PSY ---
Psychiatry Consult Chief Complaint: 27 year old female brought tpo Er for taking few pain meds. abdirahman is medically stable. She is a mother of two. 5yrs and four months. she reports feeling overwhelmed during the Holidays. She reports feling embarrased now and denies any suicidal or Homicidal ideas. She has been seeing a therapistv at [address] [place] [address]. Symptoms: reports: Depressed Mood - Previous Psychiatric Treatment Outpatient: Less than 6 mos ago Inpatient: None - Previous Substance Abuse Treatment Outpatient: None Inpatient: None - Reason for Previous Treatment Reason for Previous Treatment: Anxiety or Panic Disorder - Allergies Allergies: Allergies Allergy/AdvReac Type Severity Reaction Status Date / Time shellfish derived Allergy Verified 05/14/17 21:26 - Current Living Status Usual Living Arrangement: With Child - Current Mental Status Evaluation Appearance: Well Groomed - Affect Affect: Constrictive Appropriateness: Appropriate to Content - Mood Mood: Euthymic - Speech/Language Expressive: Coherent - Psychomotor Activity Psychomotor Activity: Normal - Thought Process Thought Process: Intact - Thought Content Hallucinations: Absent Delusions: Absent - Self Perception Self Perception: No Impairment - Cognition Attention: Alert Orientation: Time Memory, Immediate Recall: Intact Memory, Short Term: 3/3 Memory, Remote with Promptin/3 - Concentration Serial Sevens Intact: Yes Simple Calculations Intact: Yes - Abstraction Proverb Interpretation: Intact Judgement: Intact - Insight Insight: Intact - Impulse Control Impulse Control: Minimally Impaired - Suicidal Ideation Suicidal Ideation: No (no mlonger feels suicidal or HOmicidal.) - Homicidal Ideation Homicidal Ideation: No Assessment/Plan 1) patient denies any ongoing suicidal or homicidal ifdeas or plans. 2) Patient will see her therapist at [address] [place] [address] soon. 3)n Discharge patient when medically clear. when medically clear
[2017-05-15 12:14] LABS: URINE LEUK ESTERASE Negative (NEGATIVE)
--- NOTE | 2017-05-15 13:09 | EKG ---
Test Reason : Blood Pressure : / mmHG Vent. Rate : 060 BPM Atrial Rate : 060 BPM P-R Int : 166 ms QRS Dur : 088 ms QT Int : 450 ms P-R-T Axes : 051 -12 026 degrees QTc Int : 450 ms NORMAL SINUS RHYTHM NORMAL ECG WHEN COMPARED WITH ECG OF 16-JAN-2017 19:14, NO SIGNIFICANT CHANGE WAS FOUND Confirmed by MD Nation Daniel ([id number]) on 05/15/2017 1:09:18 PM Referred By: Confirmed By:Mann Nation MD
[2017-05-15 17:08] VITALS: BP 110/60; PULSE 66; TEMP 97.8
--- NOTE | 2017-05-15 17:15 | PN ---
Teaching Attending Note Name of Resident: Barry Kaba ATTENDING PHYSICIAN STATEMENT I saw and evaluated the patient. I reviewed the resident's note and discussed the case with the resident. I agree with the resident's findings and plan as documented. SUBJECTIVE:pt eloped prior to my evaluation. as per RN she refused repeat labs and then went to re-evaluate was gone. there was no iv access.
--- NOTE | 2017-05-15 17:21 | DS ---
Physical Exam: SUBJECTIVE: *PT ELOPED WITHOUT IV SITE PRIOR TO REPEAT LABORATORY TESTING AND COUNSELLING ON DISCHARGE* Briefly, 27yo F with history of asthma and lupus who reports taking 10 Excedrin Migraine tablets after feeling depressed due to the holidays. Pt reports no visual changes, headaches, CP/discomfort, SOB, abdominal pain, diarrhea, constipation, vomiting, nausea, weakness, or neurological deficits. OBJECTIVE: Vital Signs Period Temp Pulse Resp BP Sys/Mitchell Pulse Ox Last 24 Hr 97.7 F-98.0 F 64-78 16-18 110-130/52-90 100-100 PHYSICAL EXAM GENERAL: NAD, alert, awake, with sheet covering her head HEENT: EOMI, EMILEE, anicteric, no scleral injections, no nystagmus, moist mucosa LUNGS: CTA bilaterally, no wheezes, rhonchi, rales. no accessory muscle use. HEART: RRR, S1, S2 without murmuR ABDOMEN: Soft, nontender, nondistended, normoactive bowel sounds, no guarding, no rebound, no hepatomegaly, no masses. EXTREMITIES: 2+ DP pulses, warm, well-perfused, no edema. NEUROLOGICAL: Cranial nerves II through XII grossly intact. Strength 5/5 throughout. Sensation 5/5 throughout. normal speech, gait not observed. PSYCH: Depressed mood, would not make eye contact throughout exam, prioritized keeping sheet on head during exam. SKIN: Warm, dry, normal turgor, no rashes or lesions noted. LABS Laboratory Results - last 24 hr 05/14/17 05/14/17 05/14/17 21:38 21:38 21:38 WBC 3.4 L RBC 3.67 Hgb 11.6 Hct 33.8 MCV 91.9 MCH 31.5 MCHC 34.3 RDW 13.2 Plt Count 179 MPV 8.8 Neutrophils % 61.6 D Lymphocytes % 28.0 Monocytes % 7.4 Eosinophils % 2.3 Basophils % 0.7 Sodium 140 Potassium 3.3 L Chloride 107 Carbon Dioxide 25 Anion Gap 8 BUN 11 D Creatinine 0.8 D Creat Clearance w eGFR > 60 Random Glucose 99 Lactic Acid 0.9 Calcium 8.5 Total Bilirubin 0.3 D AST 19 D ALT 15 D Alkaline Phosphatase 47 D Total Protein 8.1 Albumin 3.7 D TSH Free T4 Urine Color Urine Appearance Urine pH Ur Specific Bruno Urine Protein Urine Glucose (UA) Urine Ketones Urine Blood Urine Nitrite Urine Bilirubin Urine Urobilinogen Ur Leukocyte Esterase Urine WBC (Auto) Urine RBC (Auto) Ur Epithelial Cells Urine Bacteria Urine Mucus Salicylates Opiates Screen Methadone Screen Acetaminophen Barbiturate Screen Phencyclidine Screen Ur Amphetamines Screen MDMA (Ecstasy) Screen Benzodiazepines Screen Cocaine Screen U Marijuana (THC) Screen Alcohol, Quantitative 05/14/17 05/14/17 05/14/17 21:38 21:38 21:38 WBC RBC Hgb Hct MCV MCH MCHC RDW Plt Count MPV Neutrophils % Lymphocytes % Monocytes % Eosinophils % Basophils % Sodium Potassium Chloride Carbon Dioxide Anion Gap BUN Creatinine Creat Clearance w eGFR Random Glucose Lactic Acid Calcium Total Bilirubin AST ALT Alkaline Phosphatase Total Protein Albumin TSH 4.78 H D Free T4 Urine Color Urine Appearance Urine pH Ur Specific Bruno Urine Protein Urine Glucose (UA) Urine Ketones Urine Blood Urine Nitrite Urine Bilirubin Urine Urobilinogen Ur Leukocyte Esterase Urine WBC (Auto) Urine RBC (Auto) Ur Epithelial Cells Urine Bacteria Urine Mucus Salicylates 4.827 Opiates Screen Methadone Screen Acetaminophen 6.321 L Barbiturate Screen Phencyclidine Screen Ur Amphetamines Screen MDMA (Ecstasy) Screen Benzodiazepines Screen Cocaine Screen U Marijuana (THC) Screen Alcohol, Quantitative < 5.0 05/14/17 05/14/17 05/15/17 21:45 21:45 02:30 WBC RBC Hgb Hct MCV MCH MCHC RDW Plt Count MPV Neutrophils % Lymphocytes % Monocytes % Eosinophils % Basophils % Sodium Potassium Chloride Carbon Dioxide Anion Gap BUN Creatinine Creat Clearance w eGFR Random Glucose Lactic Acid Calcium Total Bilirubin AST ALT Alkaline Phosphatase Total Protein Albumin TSH Free T4 Urine Color Ltyellow Urine Appearance Clear Urine pH 7.0 Ur Specific Bruno 1.013 Urine Protein 1+ H Urine Glucose (UA) Negative Urine Ketones Negative Urine Blood Negative Urine Nitrite Negative Urine Bilirubin Negative Urine Urobilinogen Negative Ur Leukocyte Esterase Negative Urine WBC (Auto) 7 Urine RBC (Auto) <1 Ur Epithelial Cells Rare Urine Bacteria Rare Urine Mucus Rare Salicylates Opiates Screen Negative Methadone Screen Negative Acetaminophen 7.521 L Barbiturate Screen Negative Phencyclidine Screen Negative Ur Amphetamines Screen Negative MDMA (Ecstasy) Screen Negative Benzodiazepines Screen Negative Cocaine Screen Negative U Marijuana (THC) Screen Negative Alcohol, Quantitative 05/15/17 05/15/17 05/15/17 02:42 06:36 06:36 WBC 2.8 L RBC 3.82 Hgb 12.1 Hct 35.5 MCV 92.8 MCH 31.7 MCHC 34.2 RDW 13.2 Plt Count 193 MPV 9.3 Neutrophils % 39.6 L D Lymphocytes % 40.1 H D Monocytes % 16.6 H D Eosinophils % 3.1 Basophils % 0.6 Sodium 142 Potassium 3.6 Chloride 109 H Carbon Dioxide 22 Anion Gap 11 BUN 11 Creatinine 0.8 Creat Clearance w eGFR > 60 Random Glucose 81 Lactic Acid Calcium 9.0 Total Bilirubin 0.3 AST 19 ALT 14 Alkaline Phosphatase 47 Total Protein 7.7 Albumin 3.5 TSH Free T4 0.95 Urine Color Urine Appearance Urine pH Ur Specific Bruno Urine Protein Urine Glucose (UA) Urine Ketones Urine Blood Urine Nitrite Urine Bilirubin Urine Urobilinogen Ur Leukocyte Esterase Urine WBC (Auto) Urine RBC (Auto) Ur Epithelial Cells Urine Bacteria Urine Mucus Salicylates Opiates Screen Methadone Screen Acetaminophen Barbiturate Screen Phencyclidine Screen Ur Amphetamines Screen MDMA (Ecstasy) Screen Benzodiazepines Screen Cocaine Screen U Marijuana (THC) Screen Alcohol, Quantitative 05/15/17 14:45 WBC RBC Hgb Hct MCV MCH MCHC RDW Plt Count MPV Neutrophils % Lymphocytes % Monocytes % Eosinophils % Basophils % Sodium Potassium Chloride Carbon Dioxide Anion Gap BUN Creatinine Creat Clearance w eGFR Random Glucose Lactic Acid Calcium Total Bilirubin AST ALT Alkaline Phosphatase Total Protein Albumin TSH Free T4 Urine Color Urine Appearance Urine pH Ur Specific Bruno Urine Protein Urine Glucose (UA) Urine Ketones Urine Blood Urine Nitrite Urine Bilirubin Urine Urobilinogen Ur Leukocyte Esterase Urine WBC (Auto) Urine RBC (Auto) Ur Epithelial Cells Urine Bacteria Urine Mucus Salicylates Opiates Screen Methadone Screen Acetaminophen < 10 L Barbiturate Screen Phencyclidine Screen Ur Amphetamines Screen MDMA (Ecstasy) Screen Benzodiazepines Screen Cocaine Screen U Marijuana (THC) Screen Alcohol, Quantitative HOSPITAL COURSE: Date of Admission:05/14/17 Date of Discharge: 05/15/17 27yo AA F with history of lupus and asthma who presented to ED after swallowing 10 Excedrine Migraine tablets after having a depressed mood due to the holidays. Pt had laboratory testing done as above with significant Utox positive of acetaminophen 6.5 which trended to 7.5. Pt had no symptoms with normal LFTs throughout stay. Pt was put on 1:1 until on-staff psychologist was consulted which cleared pt to be discharged home after pt did not display suicidal ideations. Poison control was contacted who recommended repeat CMP and PT/INR to be drawn to medically assess pt prior to discharge. Pt then ELOPED without an IV site without repeat laboratory testing being drawn. Pt did NOT receive discharge counselling prior to her elopement. Minutes to complete discharge: 30 Discharge Summary Reason For Visit: DRUG OVERDOSE Current Active Problems Overdose (Acute) - Instructions Diet, Activity, Other Instructions: You were hospitalized due to an overdose. Please refrain from taking more pills than medically advised If you feel abdominal pain develop or sudden vomiting please return to the ER If you feel suicidal or the feeling of wanting to harm yourself or others Disposition: ELOPED - Home Medications Comprehensive Discharge Medication List: Ambulatory Orders Cephalexin Monohydrate [Keflex -] 500 mg PO BID #20 capsule 01/17/17 This patient is new to me today: Yes Date on this admission: 05/15/17 Emergency Visit: No Critical Care patient: No - Discharge Referral Referred to [facility] Med P.C.: No
[2017-05-15 22:57] LABS: ALBUMIN 4.2 g/dl (3.4-5.0); ANION GAP 7 (8-16); BILIRUBIN,TOTAL 0.5 mg/dL (0.2-1.0); CO2 24 mmol/L (21-32); CREATININE 0.9 mg/dL (0.55-1.02); GLUCOSE,RANDOM 91 mg/dL (74-106); SGOT/AST 23 U/L (15-37)
[2017-05-15 23:00] LABS: ALK PHOS 53 U/L (45-117); SGPT/ALT 15 U/L (12-78)
== END 2017-05-15 17:25 | disposition left against medical advice (07) ==
LOC: JER 20:40 → JERBED 23:52
PROVIDERS: ADMIT Internal Medicine; ATTEND Internal Medicine
DX: T39.1X2A Poisoning by 4-Aminophenol derivatives, intentional self-harm, initial encounter (principal); Y92.9 Unspecified place or not applicable; M32.9 Systemic lupus erythematosus, unspecified; J45.909 Unspecified asthma, uncomplicated; Z91.013 Allergy to seafood; E87.6 Hypokalemia
CPT/HCPCS: 36415; 80053; 80307; 81003; 81015; 83605; 84439; 84443; 85025; 93005; 93010; 99284-25; G0378

== ENCOUNTER 2017-05-22 15:59 | Emergency (ER) | payer OTHER ==
[2017-05-22 16:10] VITALS: BP 149/97; PULSE 84; TEMP 99; BMI 30.7
--- NOTE | 2017-05-22 16:10 | PDOC ---
Rapid Medical Evaluation Time Seen by Provider: 05/22/17 16:07 Medical Evaluation: Allergies Allergy/AdvReac Type Severity Reaction Status Date / Time shellfish derived Allergy Verified 05/22/17 16:07 05/22/17 16:07 I have performed a brief in-person evaluation of this patient. The patient presents with a chief complaint of: cough w/ congestion, b/l ear pain, throat pain w/ body aches, n/v x 5 days Pertinent physical exam findings:Stable w/ unremarkable exam I have ordered the following:nothing The patient will proceed to the ED for further evaluation.
[2017-05-22] MEDS ORDERED: KETOROLAC TROMETHAMINE 60 MG/2 ML VIAL IM ONE (17:21)
[2017-05-22] MEDS ORDERED: KETOROLAC TROMETHAMINE 60 MG/2 ML VIAL ONE (17:22)
--- NOTE | 2017-05-22 17:22 | PDOC ---
History of Present Illness - General History Source: Patient Exam Limitations: No Limitations - History of Present Illness Initial Comments: 05/22/17 17:27 The patient is a 27 year old female with a significant PMH of asthma and lupus who presents to the emergency department with fever and flu-like symptoms beginning approximately 5 days ago. The patient reports experiencing body aches , reduced appetite, headache, photophobia, fever, chills, sore throat, nausea, and vomiting since this past Sunday. She denies taking any Motrin or Tylenol for relief. She reports using Albuterol as needed but denies any other medications. The patient denies chest pain, shortness of breath, dizziness. Denies diarrhea and constipation. Denies dysuria, frequency, urgency and hematuria. Allergies: NKDA Social history: No reported cigarette, alcohol, or drug use. PCP: Dr. Thomas Review of Systems: GENERAL/CONSTITUTIONAL: (+) Fever. (+) Chills. HEAD, EYES, EARS, NOSE AND THROAT: (+) Sore throat. No change in vision. No ear pain or discharge. CARDIOVASCULAR: No chest pain or shortness of breath. RESPIRATORY: No cough, wheezing, or hemoptysis. GASTROINTESTINAL: (+) Nausea. (+) Vomiting. No diarrhea or constipation. GENITOURINARY: No dysuria, frequency, or change in urination. MUSCULOSKELETAL: (+) Generalized body aches. SKIN: No rash NEUROLOGIC: (+) Headache. No vertigo, loss of consciousness, or change in strength/sensation. ENDOCRINE: No increased thirst. No abnormal weight change. HEMATOLOGIC/LYMPHATIC: No anemia, easy bleeding, or history of blood clots. ALLERGIC/IMMUNOLOGIC: No hives or skin allergy. Physical Exam: GENERAL: Awake, alert, and fully oriented, in no acute distress HEAD: No signs of trauma EYES: PERRLA, EOMI, sclera anicteric, conjunctiva clear ENT: Auricles normal inspection, hearing grossly normal, nares patent, oropharynx clear without exudates. Moist mucosa NECK: Normal ROM, supple, no lymphadenopathy, JVD, or masses LUNGS: Breath sounds equal, clear to auscultation bilaterally. No wheezes, and no crackles HEART: Regular rate and rhythm, normal S1 and S2, no murmurs, rubs or gallops ABDOMEN: Soft, nontender, normoactive bowel sounds. No guarding, no rebound. No masses EXTREMITIES: Normal range of motion, no edema. No clubbing or cyanosis. No cords, erythema, or tenderness NEUROLOGICAL: Cranial nerves II through XII grossly intact. Normal speech, normal gait SKIN: Warm, Dry, normal turgor, no rashes or lesions noted. <Dirk Acosta - Last Filed: 05/22/17 17:33> - General History Source: Patient Exam Limitations: No Limitations <Rubi Espinal - Last Filed: 05/22/17 17:49> - General Chief Complaint: Cold Symptoms Stated Complaint: COLD SYMPTOMS, VOMITING Time Seen by Provider: 05/22/17 16:07 Past History <Dirk Acosta - Last Filed: 05/22/17 17:33> - Past Medical History Asthma: Yes Cancer: No Cardiac Disorders: No COPD: No DVT: No Diabetes: No HTN: Yes Psychiatric Problems: Yes (depression) Seizures: No Thyroid Disease: No Other medical history: lupus - Reproductive History (#): 2 Para: 1 Cervical CA: No Dysfunctional Uterine Bleeding: No Ectopic : No Endometrial CA: No Polycystic Ovaries: No Therapeutic (s) & number: No Tubal Ligation: No - Suicide/Smoking/Psychosocial Hx Smoking Status: No Smoking History: Never smoked Have you smoked in the past 12 months: No Number of Cigarettes Smoked Daily: 0 Information on smoking cessation initiated: No Hx Alcohol Use: No Drug/Substance Use Hx: No Substance Use Type: None Hx Substance Use Treatment: No <Rubi Espinal - Last Filed: 05/22/17 17:49> - Past Medical History Allergies/Adverse Reactions: Allergies Allergy/AdvReac Type Severity Reaction Status Date / Time shellfish derived Allergy Verified 05/22/17 16:07 Home Medications: Ambulatory Orders Ibuprofen [Motrin -] 600 mg PO QID #28 tablet 05/22/17 Oseltamivir Phosphate [Tamiflu -] 75 mg PO BID #10 capsule 05/22/17 *Physical Exam - Vital Signs Last Vital Signs Temp Pulse Resp BP Pulse Ox 99.0 F 84 18 149/97 100 05/22/17 16:08 05/22/17 16:08 05/22/17 16:08 05/22/17 16:08 05/22/17 16:08 <Dirk Acosta - Last Filed: 05/22/17 17:33> - Vital Signs Last Vital Signs Temp Pulse Resp BP Pulse Ox 99.0 F 84 18 149/97 100 05/22/17 16:08 05/22/17 16:08 05/22/17 16:08 05/22/17 16:08 05/22/17 16:08 <Rubi Espinal - Last Filed: 05/22/17 17:49> ED Treatment Course - Medications Given in the ED: ED Medications Discontinued Medications Generic Name Dose Route Start Last Admin Trade Name Marily PRN Reason Stop Dose Admin Ketorolac Tromethamine 60 mg 05/22/17 17:21 05/22/17 17:25 Toradol Injection - IM 05/22/17 17:22 60 mg ONCE ONE Administration <Dirk Acosta - Last Filed: 05/22/17 17:33> Medical Decision Making - Medical Decision Making 05/22/17 17:21 A/P: Patient here for evaluation of fever, generalized aches and pains, cough, nasal congestion consistent with influenza-type illness. She has been having symptoms since Sunday history of asthma and lupus. Patient with headache 10 out of 10 will give Toradol 60 mg IM 1 patient tolerating fluids at told patient to increase her fluid intake. I will discharge patient home on Tamiflu, follow-up with PMD in 3 days if symptoms persist if patient unable to eat or drink, increased headache, fever uncontrolled, any other concerns return to ER I discussed the physical exam findings, ancillary test results and final diagnoses with the patient. I answered all of the patient's questions. The patient was satisfied with the care received and felt comfortable with the discharge plan and treatment plan. The patient will call to arrange follow-up and will return to the Emergency Department with any new, persistent or worsening symptoms. <Rubi Espinal - Last Filed: 05/22/17 17:49> *DC/Admit/Observation/Transfer - Attestations Scribe Attestion: 05/22/17 17:27 Documentation prepared by Dirk Acosta, acting as medical office scheduler for Rubi Espinal NP. <Dirk Acosta - Last Filed: 05/22/17 17:33> - Discharge Dispostion Admit: No <Rubi Espinal - Last Filed: 05/22/17 17:49> Diagnosis at time of Disposition: Influenza-like illness - Discharge Dispostion Disposition: HOME Condition at time of disposition: Stable - Prescriptions Prescriptions: Ibuprofen [Motrin -] 600 mg PO QID #28 tablet Oseltamivir Phosphate [Tamiflu -] 75 mg PO BID #10 capsule - Referrals Referrals: Ayanna Thomas [Primary Care Provider] - - Patient Instructions Printed Discharge Instructions: Influenza (Alternative Therapy) Additional Instructions: Increase fluids to prevent dehydration Tylenol for headache Motrin for fever greater than 101.0 Please followup with primary care DrKaley in 3 days if symptoms persist Return to emergency department any increased cough, fever, inability to drink or other concerns - Post Discharge Activity Forms/Work/School Notes: Back to Work
== END 2017-05-22 17:52 | disposition home or self-care (01) ==
LOC: JERFT 15:59
PROC: 3E0233Z Introduction of Anti-inflammatory into Muscle, Percutaneous Approach (ICD-10-PCS; principal; 2017-05-22)
DX: J11.1 Influenza due to unidentified influenza virus with other respiratory manifestations (principal)
CPT/HCPCS: 96372; 99281-25

== ENCOUNTER 2017-10-25 15:02 | Emergency (ER) | payer OTHER ==
[2017-10-25 15:09] VITALS: BP 148/89; PULSE 73; TEMP 98.1; BMI 33.9
--- NOTE | 2017-10-25 15:44 | PDOC ---
History of Present Illness - General Chief Complaint: Pain Stated Complaint: RT SIDE PAIN Time Seen by Provider: 10/25/17 15:17 - History of Present Illness Initial Comments: 10/25/17 15:44 Ms. Hamlin is a 27 yo female w/ pmh of asthma and lupus who presents for evaluation of 1 1/2 weeks of right sided abdominal pain. She reports the pain is crampy and intermittent, and that she has had 3 instances each of both vomiting and diarrhea. Ms. Hamlin presented to her [facility] last for evaluation of this same pain and was told her IUD is still in place, however was encouraged to present to ED if any further pain. She reports she has had this pain several times since but finally decided to come today. She also reports 2 instances of subjective fever. She also reports that she has had increased pain with urination and increased urgency. The patient denies chest pain, shortness of breath, headache and dizziness. Denies chills and constipation. Denies urgency and hematuria. Allergies: NKDA Past History - Past Medical History Allergies/Adverse Reactions: Allergies Allergy/AdvReac Type Severity Reaction Status Date / Time shellfish derived Allergy Verified 10/25/17 15:04 Home Medications: Ambulatory Orders Famotidine [Pepcid -] 20 mg PO DAILY #14 tablet 10/25/17 Ibuprofen [Motrin -] 600 mg PO TID PRN #15 tablet 10/25/17 Ondansetron [Zofran Odt -] 4 mg SL TID PRN #10 od.tablet 10/25/17 Asthma: Yes Cancer: No Cardiac Disorders: No CVA: No COPD: No DVT: No Diabetes: No HTN: Yes Psychiatric Problems: Yes (depression) Seizures: No Thyroid Disease: No Other medical history: LUPUS - Reproductive History (#): 2 Para: 1 Cervical CA: No Dysfunctional Uterine Bleeding: No Ectopic : No Endometrial CA: No Polycystic Ovaries: No Therapeutic (s) & number: No Tubal Ligation: No - Suicide/Smoking/Psychosocial Hx Smoking Status: No Smoking History: Never smoked Have you smoked in the past 12 months: No Number of Cigarettes Smoked Daily: 0 Information on smoking cessation initiated: No Hx Alcohol Use: No Drug/Substance Use Hx: No Substance Use Type: None Hx Substance Use Treatment: No Review of Systems - Review of Systems Comments:: 10/25/17 15:44 GENERAL/CONSTITUTIONAL: No fever or chills. No weakness. HEAD, EYES, EARS, NOSE AND THROAT: No change in vision. No ear pain or discharge. No sore throat. CARDIOVASCULAR: No chest pain or shortness of breath RESPIRATORY: No cough, wheezing, or hemoptysis. GASTROINTESTINAL: +Right sided abdominal pain as described with nausea, vomiting , and intermittent diarrhea. GENITOURINARY: No dysuria, frequency, or change in urination. MUSCULOSKELETAL: No joint or muscle swelling or pain. No neck or back pain. SKIN: No rash NEUROLOGIC: No headache, vertigo, loss of consciousness, or change in strength/ sensation. ENDOCRINE: No increased thirst. No abnormal weight change HEMATOLOGIC/LYMPHATIC: No anemia, easy bleeding, or history of blood clots. ALLERGIC/IMMUNOLOGIC: No hives or skin allergy. *Physical Exam - Vital Signs Last Vital Signs Temp Pulse Resp BP Pulse Ox 98.1 F 73 18 148/89 100 10/25/17 15:05 10/25/17 15:05 10/25/17 15:05 10/25/17 15:05 10/25/17 15:05 - Physical Exam Comments: 10/25/17 15:44 GENERAL: Awake, alert, and fully oriented, in no acute distress HEAD: No signs of trauma, normocephalic, atraumatic EYES: PERRLA, EOMI, sclera anicteric, conjunctiva clear ENT: Auricles normal inspection, hearing grossly normal, nares patent, oropharynx clear without exudates. Moist mucosa NECK: Normal ROM, supple, no lymphadenopathy, JVD, or masses LUNGS: No distress, speaks full sentences, clear to auscultation bilaterally HEART: Regular rate and rhythm, normal S1 and S2, no murmurs, rubs or gallops, peripheral pulses normal and equal bilaterally. ABDOMEN: +RLQ TTP. Soft, normoactive bowel sounds. No guarding, no rebound. No masses EXTREMITIES: Normal inspection, Normal range of motion, no edema. No clubbing or cyanosis. NEUROLOGICAL: Cranial nerves II through XII grossly intact. Normal speech, normal gait, no focal sensorimotor deficits SKIN: Warm, Dry, normal turgor, no rashes or lesions noted. : No CMT, right adnexal tenderness. Os closed, no blood noted in vaginal vault. ED Treatment Course - LABORATORY CBC & Chemistry Diagram: 10/25/17 16:34 10/25/17 16:34 Medical Decision Making - Medical Decision Making 10/25/17 18:57 Ms. Hamlin is a 27 yo female w/ pmh as described who presents for evaluation of right sided abdominal pain concerning for ovarian torsion vs. acute appendicitis. US revealed no concerning findings and single right ovarian cyst. CT abdomen ordered for r/o appendicitis. Patient signed out to Dr. Blevins for further evaluation. *DC/Admit/Observation/Transfer Diagnosis at time of Disposition: Ovarian cyst Qualifiers: Laterality: unspecified laterality Qualified Code(s): N83.209 - Unspecified ovarian cyst, unspecified side - Discharge Dispostion Disposition: HOME Condition at time of disposition: Stable - Prescriptions Prescriptions: Famotidine [Pepcid -] 20 mg PO DAILY #14 tablet Ibuprofen [Motrin -] 600 mg PO TID PRN #15 tablet PRN Reason: Pain Ondansetron [Zofran Odt -] 4 mg SL TID PRN #10 od.tablet PRN Reason: Nausea - Referrals Referrals: Todd Rendon MD [Staff Physician] - Ayanna Thomas [Primary Care Provider] - Kika Ledezma [Non Staff, Medical] - - Patient Instructions Printed Discharge Instructions: DI for Ovarian Cyst, DI for Nausea -- Adult Additional Instructions: Please call your [facility] to arrange follow up. Please make an appointment to see the receiving and processing supervisor. Please take all meds as prescribed. Please return to the ED with any further concerns. - Post Discharge Activity
--- NOTE | 2017-10-25 15:59 | PDOC ---
Attending Attestation - HPI HPI: 10/25/17 17:44 The patient is a 27 year old female with a significant PMH of asthma and lupus who presents to the emergency department with right sided abdominal pain for 1 and a half weeks. She states that she has been experiencing some white discharge with her right sided abdominal pain. She describes her pain as intermittent and crampy. She states that she has been experiencing urinary frequency and mild dysuria The patient also reports that she has been experiencing associated nausea, vomiting and diarrhea for the past 3 nights. The patient states that she had her IUD placed last December. The patient states that she saw her OBGYN 1 week ago with similar pain. The patient denies any other symptoms. She denies any chest pain, shortness of breath, headache and dizziness. She denies any ever, chills, constipation or other urinary symptoms or history of STDs. The patient denies any other complaints. 10/25/17 17:44 Documentation prepared by Danilo Bo, acting as medical reimbursement specialist for Sonia Blevins MD. - Physicial Exam PE: 10/25/17 17:44 GENERAL: Awake, alert, and fully oriented, in no acute distress HEAD: No signs of trauma EYES: PERRLA, EOMI, sclera anicteric, conjunctiva clear ENT: Auricles normal inspection, hearing grossly normal, nares patent, oropharynx clear without exudates. Moist mucosa NECK: Normal ROM, supple, no lymphadenopathy, JVD, or masses LUNGS: Breath sounds equal, clear to auscultation bilaterally. No wheezes, and no crackles HEART: Regular rate and rhythm, normal S1 and S2, no murmurs, rubs or gallops ABDOMEN: non tender at McBurney's point. Soft, nontender, normoactive bowel sounds. No guarding, no rebound. No masses EXTREMITIES: Normal range of motion, no edema. No clubbing or cyanosis. No cords, erythema, or tenderness NEUROLOGICAL: Cranial nerves II through XII grossly intact. Normal speech, normal gait SKIN: Warm, Dry, normal turgor, no rashes or lesions noted. <Danilo Bo - Last Filed: 10/25/17 17:44> - Resident Resident Name: Dante Wen - ED Attending Attestation I have performed the following: I have examined & evaluated the patient, The case was reviewed & discussed with the resident, I agree w/resident's findings & plan, Exceptions are as noted - Medical Decision Making 10/25/17 15:59 I, Dr. Sonia Blevins, DO, attest that this document has been prepared under my direction and personally reviewed by me in its entirety. I further attest, that it accurately reflects all work, treatment, procedures and medical decision -making performed by me. 10/25/17 16:37 a/p: 27yo female with 3 days of n/v/d and R pelvic pain -urinary freq -no dysuria -R pelvis cramping -IUD in place -R adnexal ttp on exam - suspect uti vs pelvic pathology neg ttp over mcburneys point will check labs, ua, ultrasound to start if ultrasound negative and abnl labs, may need ct - will medicate, monitor and reassess 10/25/17 20:26 ovarian cyst on ultrasound and ct labs reviewed will start nsaids for pain <Sonia Blevins - Last Filed: 10/25/17 20:33> Discharge Disposition - Discharge Dispostion Decision to Admit order: No <Sonia Blevins - Last Filed: 10/25/17 20:33> - Diagnosis Ovarian cyst - Discharge Dispostion Disposition: HOME Condition at time of disposition: Stable - Prescriptions Prescriptions: Famotidine [Pepcid -] 20 mg PO DAILY #14 tablet Ibuprofen [Motrin -] 600 mg PO TID PRN #15 tablet PRN Reason: Pain Ondansetron [Zofran Odt -] 4 mg SL TID PRN #10 od.tablet PRN Reason: Nausea - Referrals Referrals: Ayanna Thomas [Primary Care Provider] - Kika Ledezma [Non Staff, Medical] - Todd Rendon MD [Staff Physician] - - Patient Instructions Printed Discharge Instructions: DI for Nausea -- Adult, DI for Ovarian Cyst Additional Instructions: Please call your MUSEUM ATTENDANT to arrange follow up. Please make an appointment to see the data analytics specialist. Please take all meds as prescribed. Please return to the ED with any further concerns. - Post Discharge Activity
[2017-10-25] MEDS ORDERED: SODIUM CHLORIDE 1,000 ML IV STA (16:32)
[2017-10-25] MEDS ORDERED: FAMOTIDINE 20 MG/50 ML IVPB 20 MG/50 ML MG IVPB ONE ×2 (16:33→16:46)
[2017-10-25 16:59] LABS: EOS % 4.4 % (0-4.5); HEMATOCRIT 34.6 % (32.4-45.2); LYMPH % 36.6 % (8-40); MCHC 34.6 g/dl (32.0-36.0); MEAN CELL VOLUME 92.3 fl (80-96); MEAN PLT VOLUME 8.9 fl (7.5-11.1); MONO % 8.9 % (3.8-10.2); NEUT % 49.1 % (42.8-82.8); PLATELET COUNT 209 K/MM3 (134-434); RBC 3.75 M/mm3 (3.60-5.2); RDW 12.3 % (11.6-15.6); WHITE BLOOD COUNT 3.1 K/mm3 (4.0-10.0)
[2017-10-25 16:59] LABS: URINE APPEARANCE CLEAR; URINE BILIRUBIN NEGATIVE (<2.0 mg/dL); URINE BLOOD NEGATIVE (NEGATIVE); URINE COLOR LTYELLOW; URINE GLUCOSE (UA) NEGATIVE (NEGATIVE); URINE KETONE NEGATIVE (NEGATIVE); URINE LEUK ESTERASE NEGATIVE (NEGATIVE); URINE NITRITE NEGATIVE (NEGATIVE)
[2017-10-25 17:02] LABS: HCG,QUALITATIVE URINE NEGATIVE
[2017-10-25 17:25] LABS: ALK PHOS 44 U/L (45-117); ANION GAP 8 (8-16); BILIRUBIN,TOTAL 0.4 mg/dL (0.2-1.0); BLOOD UREA NITROGEN 10 mg/dL (7-18); CALCIUM 9.5 mg/dL (8.5-10.1); CHLORIDE 104 mmol/L (98-107); CO2 27 mmol/L (21-32); CREATININE 0.6 mg/dL (0.55-1.02); GLUCOSE,RANDOM 81 mg/dL (74-106); POTASSIUM 3.5 mmol/L (3.5-5.1); SGOT/AST 20 U/L (15-37); SGPT/ALT 19 U/L (12-78); SODIUM 139 mmol/L (136-145); TOT PROT 8.5 g/dl (6.4-8.2)
[2017-10-25] MEDS ORDERED: KETOROLAC TROMETHAMINE 15 MG/ML VIAL IVPUSH ONE (17:46)
[2017-10-25] MEDS ORDERED: KETOROLAC TROMETHAMINE 15 MG/ML VIAL ONE (17:47)
[2017-10-25 18:00] LABS: URINE PROTEIN 1+ (NEGATIVE)
[2017-10-25 18:04] LABS: EPI CELLS RARE /HPF (FEW); URINE BACTERIA RARE /hpf (NONE SEEN)
== END 2017-10-25 21:16 | disposition home or self-care (01) ==
LOC: JER 15:02
PROC: 3E033GC Introduction of Other Therapeutic Substance into Peripheral Vein, Percutaneous Approach (ICD-10-PCS; principal; 2017-10-25)
PROC: 3E0333Z Introduction of Anti-inflammatory into Peripheral Vein, Percutaneous Approach (ICD-10-PCS; 2017-10-25)
DX: N83.201 Unspecified ovarian cyst, right side (principal)
CPT/HCPCS: 36415; 74177-TC; 76830-TC; 80053; 81003; 81015; 84703; 85025; 87086; 99282-25; J7030

== ENCOUNTER 2018-08-11 09:13 | Emergency (ER) | payer OTHER ==
[2018-08-11 09:18] VITALS: BP 140/93; PULSE 77; TEMP 98.2; BMI 30.7
--- NOTE | 2018-08-11 10:31 | PDOC ---
History of Present Illness - General Chief Complaint: Respiratory Stated Complaint: FLU SYMPTOMS Time Seen by Provider: 08/11/18 10:00 History Source: Patient Exam Limitations: No Limitations Past History - Past Medical History Allergies/Adverse Reactions: Allergies Allergy/AdvReac Type Severity Reaction Status Date / Time shellfish derived Allergy Verified 08/11/18 09:17 Home Medications: Ambulatory Orders Fluticasone Prop 0.05% Nasal [Flonase -] 1 - 2 spray NS DAILY #1 spray.pump Asthma: Yes Cancer: No Cardiac Disorders: No CVA: No COPD: No DVT: No Diabetes: No HTN: Yes (non medicated) Psychiatric Problems: Yes (depression) Seizures: No Thyroid Disease: No Other medical history: lupus - Reproductive History (#): 2 Para: 1 Cervical CA: No Dysfunctional Uterine Bleeding: No Ectopic : No Endometrial CA: No Polycystic Ovaries: No Therapeutic (s) & number: No Tubal Ligation: No - Suicide/Smoking/Psychosocial Hx Smoking Status: No Smoking History: Never smoked Have you smoked in the past 12 months: No Number of Cigarettes Smoked Daily: 0 Hx Alcohol Use: No Drug/Substance Use Hx: No Substance Use Type: None Hx Substance Use Treatment: No *Physical Exam - Vital Signs Last Vital Signs Temp Pulse Resp BP Pulse Ox 98.2 F 77 18 140/93 99 08/11/18 09:15 08/11/18 09:15 08/11/18 09:15 08/11/18 09:15 08/11/18 09:15 - Physical Exam HEENT: positive: TMs Normal, Pharynx Normal, Nasal Congestion, Sinus Tenderness (along R maxillary and slight along R frontal), Other (no purulent drainage). negative: Pharyngeal Erythema, Tonsillar Exudate, Rhinorrhea Respiratory/Chest: positive: Lungs Clear, Normal Breath Sounds. negative: Respiratory Distress Gastrointestinal/Abdominal: positive: Normal Bowel Sounds, Soft. negative: Tender, Distended, Guarding, Rebound Integumentary: positive: Normal Color Neurologic: positive: Fully Oriented, Alert, Normal Mood/Affect Moderate Sedation - Procedure Monitoring Vital Signs: Procedure Monitoring Vital Signs Temperature 98.2 F 08/11/18 09:15 Pulse Rate 77 08/11/18 09:15 Respiratory Rate 18 08/11/18 09:15 Blood Pressure 140/93 08/11/18 09:15 O2 Sat by Pulse Oximetry (%) 99 08/11/18 09:15 Medical Decision Making - Medical Decision Making 28 y/o F with hx of asthma presents with nasal congestion, facial pain, sore throat, rhinorrhea, mild dry cough since 3 days ago. Denies fever, sneezing, sob , cp, abd pain, n/v/d. Likely viral sinusitis 08/11/18 10:25 *DC/Admit/Observation/Transfer Diagnosis at time of Disposition: Sinusitis Qualifiers: Sinusitis location: unspecified location Chronicity: acute Recurrence: non- recurrent Qualified Code(s): J01.90 - Acute sinusitis, unspecified - Discharge Dispostion Disposition: HOME Condition at time of disposition: Stable Decision to Admit order: No - Prescriptions Prescriptions: Fluticasone Prop 0.05% Nasal [Flonase -] 1 - 2 spray NS DAILY #1 spray.pump - Referrals Referrals: Ayanna Thomas [Primary Care Provider] - 3 days - Patient Instructions Printed Discharge Instructions: DI for Sinusitis Additional Instructions: Thank you for choosing [facility]. It was a pleasure taking care of you. Use the Flonase to help with the congestion. You can use 2 sprays in each nostril daily for 1 week Also try using Nedi-Pot to help alleviate congestion Use humidifier at night if needed Follow-up with your doctor in 2-3 days Return to the Emergency Department if your symptoms worsen or persist or have other concerning symptoms. - Post Discharge Activity
== END 2018-08-11 10:34 | disposition home or self-care (01) ==
LOC: JERFT 09:13
DX: J01.90 Acute sinusitis, unspecified (principal); I10 Essential (primary) hypertension; F32.9 Major depressive disorder, single episode, unspecified; Z87.39 Personal history of other diseases of the musculoskeletal system and connective tissue
CPT/HCPCS: 99281-25

== ENCOUNTER 2018-08-24 08:00 | Emergency (ER) | payer OTHER ==
[2018-08-24 08:11] VITALS: BP 136/91; PULSE 77; TEMP 98.2; BMI 30.7
[2018-08-24] MEDS ORDERED: LORATADINE 10 MG TABLET PO ONE (08:24)
[2018-08-24] MEDS ORDERED: ACETAMINOPHEN 325 MG TABLET (FP) PO ONE (08:24)
--- NOTE | 2018-08-24 08:29 | PDOC ---
History of Present Illness - General Chief Complaint: Sore Throat Stated Complaint: SORETHROAT SYMPTOMS Time Seen by Provider: 08/24/18 08:24 History Source: Patient Exam Limitations: No Limitations - History of Present Illness Associated Symptoms: reports: cough. denies: chest pain, diaphoresis, fever/ chills, headaches (sorethroat and nasal congestion X 1wk), malaise, nausea/ vomiting Past History - Travel Close contact w/someone who was outside of country & ill: No - Past Medical History Allergies/Adverse Reactions: Allergies Allergy/AdvReac Type Severity Reaction Status Date / Time shellfish derived Allergy Verified 08/24/18 08:08 Home Medications: Ambulatory Orders Fluticasone Prop 0.05% Nasal [Flonase -] 1 - 2 spray NS DAILY #1 spray.pump Benzonatate [Tessalon Pearls -] 100 mg PO TID #21 capsule 08/24/18 Ibuprofen 600 mg PO ACDIN 7 Days #21 tablet 08/24/18 Loratadine 10 mg PO DAILY 30 Days #30 tab 08/24/18 Asthma: Yes Cancer: No Cardiac Disorders: No CVA: No COPD: No DVT: No Diabetes: No HTN: Yes (non medicated) Psychiatric Problems: Yes (depression) Seizures: No Thyroid Disease: No - Reproductive History (#): 2 Para: 1 Cervical CA: No Dysfunctional Uterine Bleeding: No Ectopic : No Endometrial CA: No Polycystic Ovaries: No Therapeutic (s) & number: No Tubal Ligation: No - Suicide/Smoking/Psychosocial Hx Smoking Status: No Smoking History: Never smoked Have you smoked in the past 12 months: No Number of Cigarettes Smoked Daily: 0 Hx Alcohol Use: No Drug/Substance Use Hx: No Substance Use Type: None Hx Substance Use Treatment: No Review of Systems - Review of Systems Is the patient limited Ken[place] proficient: No Constitutional: No: Chills, Fever HEENTM: Yes: Nose Congestion, Throat Pain. No: Double Vision, Ear Pain, Ear Discharge, Nose Pain, Throat Swelling, Mouth Pain, Difficulty Swallowing, Mouth Swelling Respiratory: Yes: Cough. No: Shortness of Breath, Wheezing, Productive cough Cardiac (ROS): No: Chest Pain, Irregular Heart Rate, Palpitations Musculoskeletal: No: Back Pain Integumentary: No: Bruising Neurological: No: Headache, Numbness, Unsteady Gait, Dizziness *Physical Exam - Vital Signs Last Vital Signs Temp Pulse Resp BP Pulse Ox 98.2 F 77 16 136/91 96 08/24/18 08:08 08/24/18 08:08 08/24/18 08:08 08/24/18 08:08 08/24/18 08:08 - Physical Exam General Appearance: Yes: Nourished HEENT: positive: EOMI, PAN, Normal ENT Inspection, TMs Normal, Pharyngeal Erythema, Nasal Congestion, Rhinorrhea. negative: Tonsillar Exudate, Tonsillar Erythema, Sinus Tenderness, Hearing Decreased, TM Erythema, Excessive drooling Neck: positive: Supple Respiratory/Chest: positive: Lungs Clear, Normal Breath Sounds Cardiovascular: positive: Regular Rhythm, Regular Rate, S1, S2 Musculoskeletal: positive: Normal Inspection, CVA Tenderness Extremity: positive: Normal Capillary Refill, Normal Inspection Integumentary: positive: Normal Color Neurologic: positive: adult health clinical nurse specialist II-XII NML intact, Fully Oriented, Alert, Normal Response, Motor Strength 5/5 Medical Decision Making - Medical Decision Making 08/24/18 08:31 Patient is a 28 years old female who was seen in the emergency room about a week ago for URI symptoms. Presents with sore throat and nasal congestion 1 week. Patient denies any fever or any chills no difficulty swallowing or hoarseness. 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 Viral URI rapid strep ordered and is pending Rapid strep neg supportive measures advised 08/24/18 11:29 *DC/Admit/Observation/Transfer Diagnosis at time of Disposition: URI, acute - Discharge Dispostion Disposition: HOME Condition at time of disposition: Stable Decision to Admit order: No - Prescriptions Prescriptions: Benzonatate [Tessalon Pearls -] 100 mg PO TID #21 capsule Ibuprofen 600 mg PO ACDIN 7 Days #21 tablet Loratadine 10 mg PO DAILY 30 Days #30 tab - Referrals Referrals: Ayanna Thomas [Primary Care Provider] - - Patient Instructions Printed Discharge Instructions: Common Cold Additional Instructions: Your strep was negative, a culture will be sent out, if it is possible you will be called for antibiotics Gargle with salt warm water follow up with your PCP in 2-3 days Return to the Emergency Department if worsening symptom occurs. - Post Discharge Activity
[2018-08-24] MEDS ORDERED: LORATADINE 10 MG TABLET ONE (08:30)
[2018-08-24] MEDS ORDERED: ACETAMINOPHEN 325 MG TABLET (FP) ONE (08:31)
== END 2018-08-24 09:09 | disposition home or self-care (01) ==
LOC: JER 08:00 → JERFT 08:00
DX: J06.9 Acute upper respiratory infection, unspecified (principal); I10 Essential (primary) hypertension; F32.9 Major depressive disorder, single episode, unspecified; J45.909 Unspecified asthma, uncomplicated
CPT/HCPCS: 87070; 87880; 99281-25

== ENCOUNTER 2019-06-05 08:45 | Emergency (ER) | payer OTHER ==
[2019-06-05 08:54] VITALS: BMI 34.2
[2019-06-05] MEDS ORDERED: ONDANSETRON *ODT* 4 MG TABLET SL ONE (09:08)
[2019-06-05] MEDS ORDERED: ONDANSETRON *ODT* 4 MG TABLET ONE (09:16)
[2019-06-05 10:12] LABS: EPI CELLS 4.6 /HPF (0-5/HPF); HYALINE CASTS 1 /lpf (0-8); URINE APPEARANCE CLEAR; URINE BACTERIA 110.4 /hpf (NEGATIVE); URINE BILIRUBIN NEGATIVE (NEGATIVE); URINE COLOR YELLOW; URINE GLUCOSE (UA) NEGATIVE (NEGATIVE); URINE KETONE NEGATIVE (NEGATIVE); URINE LEUK ESTERASE NEGATIVE (NEGATIVE); URINE NITRITE NEGATIVE (NEGATIVE); URINE PROTEIN 2+ (NEGATIVE); URINE RBC 3 /hpf (0-4); URINE WBC 1 /hpf (0-5)
--- NOTE | 2019-06-05 10:45 | PDOC ---
History of Present Illness - General Chief Complaint: Pain, Acute Stated Complaint: ABD PAIN Time Seen by Provider: 06/05/19 09:08 History Source: Patient Exam Limitations: No Limitations - History of Present Illness Travel History: No Initial Comments: 06/05/19 10:06 29-year-old female presents to ED with complaints of nausea vomiting since awakening this morning at around 8 AM. Patient states went to work but when vomiting continued she was sent home and sent here for further evaluation. Patient denies abdominal pain, fever, chills diarrhea but states nausea vomiting continues. 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 Timing/Duration: reports: intermittent Quality: reports: mild Pain Radiation: reports: no radiation Aggravating Factors: improves with: None Alleviating Factors: improves with: Vomiting Past History - Travel Traveled outside of the country in the last 30 days: No Close contact w/someone who was outside of country & ill: No - Past Medical History Allergies/Adverse Reactions: Allergies Allergy/AdvReac Type Severity Reaction Status Date / Time shellfish derived Allergy Verified 08/24/18 08:08 Home Medications: Ambulatory Orders Ondansetron HCl [Zofran] 4 mg PO TID PRN #12 tablet 06/05/19 Propranolol HCl [Propranolol HCl ER] 60 mg PO DAILY 06/05/19 Asthma: Yes Cancer: No Cardiac Disorders: No CVA: No COPD: No DVT: No Diabetes: No HTN: Yes (non medicated) Psychiatric Problems: Yes (depression) Seizures: No Thyroid Disease: No - Reproductive History (#): 2 Para: 1 Cervical CA: No Dysfunctional Uterine Bleeding: No Ectopic : No Endometrial CA: No Polycystic Ovaries: No Therapeutic (s) & number: No Tubal Ligation: No - Immunization History Immunization Up to Date: No - Psycho Social/Smoking Cessation Hx Smoking Status: No Smoking History: Never smoked Have you smoked in the past 12 months: No Number of Cigarettes Smoked Daily: 0 Information on smoking cessation initiated: No Hx Alcohol Use: No Drug/Substance Use Hx: No Substance Use Type: None Hx Substance Use Treatment: No Patient Lives Alone: No Lives with/in: parents Review of Systems - Review of Systems Able to Perform ROS?: Yes Constitutional: Yes: Weakness HEENTM: No: Symptoms Reported Respiratory: No: Symptoms reported Cardiac (ROS): No: Symptoms Reported ABD/GI: Yes: Nausea, Poor Appetite, Poor Fluid Intake, Vomiting, Abdominal cramping : No: Symptoms Reported Musculoskeletal: No: Symptoms Reported Integumentary: No: Symptoms Reported Neurological: Yes: Weakness (Mild generalized) *Physical Exam - Vital Signs Last Vital Signs Temp Pulse Resp BP Pulse Ox 98.4 F 83 18 131/89 98 06/05/19 08:51 06/05/19 08:51 06/05/19 08:51 06/05/19 08:51 06/05/19 08:51 - Physical Exam General Appearance: Yes: Nourished, Appropriately Dressed. No: Apparent Distress HEENT: negative: Pale Conjunctivae Neck: positive: Supple Respiratory/Chest: positive: Lungs Clear, Normal Breath Sounds. negative: Respiratory Distress, Accessory Muscle Use Cardiovascular: positive: Regular Rhythm, Regular Rate. negative: Murmur Gastrointestinal/Abdominal: positive: Soft. negative: Tenderness Extremity: positive: Normal Inspection Integumentary: positive: Normal Color, Warm, Moist Neurologic: positive: Motor Strength 5/5 (Ambulatory) ED Treatment Course - ADDITIONAL ORDERS Additional order review: Laboratory Results 06/05/19 06/05/19 09:50 09:50 Urine Color Yellow Urine Appearance Clear Urine pH 5.0 Ur Specific [place] 1.028 Urine Protein 2+ H Urine Glucose (UA) Negative Urine Ketones Negative Urine Blood Negative Urine Nitrite Negative Urine Bilirubin Negative Urine Urobilinogen 1.0 Ur Leukocyte Esterase Negative Urine WBC (Auto) 1 Urine RBC (Auto) 3 Urine Casts (Auto) 1 U Epithel Cells (Auto) 4.6 Urine Bacteria (Auto) 110.4 Urine HCG, Qual Negative - Medications Given in the ED: ED Medications Discontinued Medications Generic Name Dose Route Start Last Admin Trade Name Freq PRN Reason Stop Dose Admin Ondansetron HCl 4 mg 06/05/19 09:08 06/05/19 09:20 Zofran Odt - SL 06/05/19 09:09 4 mg ONCE ONE Administration Medical Decision Making - Medical Decision Making 06/05/19 09:52 Chief complaint: Nausea vomiting since 8 AM this morning with continual nausea and vomiting with no other complaints. Exam: Vital signs stable. No acute findings. No abdominal tenderness. 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 Will discharge home with Zofran along with work note and supportive care instructions Discharge - Discharge Information Problems reviewed: Yes Clinical Impression/Diagnosis: Nausea & vomiting Condition: Improved Disposition: HOME - Additional Discharge Information Prescriptions: Ondansetron HCl [Zofran] 4 mg PO TID PRN #12 tablet PRN Reason: Nausea And/Or Vomiting - Follow up/Referral - Patient Discharge Instructions Patient Printed Discharge Instructions: DI for Nausea -- Adult Additional Instructions: please drink plenty of fluids rest, follow a bland diet for the next 48 hours then advance as tolerated. Take Zofran as needed for nausea. - Post Discharge Activity Work/Back to School Note: Back to Work
[2019-06-05 10:46] VITALS: BP 117/79; PULSE 70; TEMP 98.3
== END 2019-06-05 10:55 | disposition home or self-care (01) ==
LOC: JER 08:45
DX: R11.2 Nausea with vomiting, unspecified (principal); I10 Essential (primary) hypertension; J45.909 Unspecified asthma, uncomplicated; F32.9 Major depressive disorder, single episode, unspecified
CPT/HCPCS: 81003; 84703; 87086; 87804; 99282-25; Q0162

== ENCOUNTER 2021-07-26 14:20 | Inpatient (IN) | payer OTHER ==
[2021-07-26] MEDS ORDERED: SODIUM CHLORIDE 0.9% 500 ML INFUS.BAG IV ONE (15:33)
[2021-07-26] MEDS ORDERED: morphine CARPU-JECT 2 MG/1 ML DISP.SYRIN IVPUSH ONE (15:33)
[2021-07-26] MEDS ORDERED: ONDANSETRON 4 MG/2 ML VIAL IVPUSH ONE (18:19)
[2021-07-26 18:34] LABS: BASO % 1.1 % (0-2.0); EOS % 4.3 % (0-4.5); HEMATOCRIT 34.7 % (32.4-45.2); HEMOGLOBIN 11.6 GM/dL (10.7-15.3); LYMPH % 50.5 % (8-40); MCH 30.9 pg (25.7-33.7); MCHC 33.6 g/dl (32.0-36.0); MEAN PLT VOLUME 9.1 fl (7.5-11.1); MONO % 7.7 % (3.8-10.2); NEUT % 36.4 % (42.8-82.8); PLATELET COUNT 179 10^3/uL (134-434); RBC 3.77 M/mm3 (3.60-5.2); RDW 12.5 % (11.6-15.6); WHITE BLOOD COUNT 2.9 K/mm3 (4.0-10.0)
[2021-07-26 18:39] LABS: EPI CELLS 18 /uL (0-25.1); HCG,QUALITATIVE URINE Negative; HYALINE CASTS 1 /uL (0-3.1); URINE APPEARANCE CLEAR; URINE BACTERIA 861 /uL (0-1359); URINE BILIRUBIN NEGATIVE (NEGATIVE); URINE COLOR YELLOW; URINE GLUCOSE (UA) NEGATIVE (NEGATIVE); URINE KETONE NEGATIVE (NEGATIVE); URINE LEUK ESTERASE NEGATIVE (NEGATIVE); URINE NITRITE NEGATIVE (NEGATIVE); URINE PROTEIN 1+ (NEGATIVE); URINE RBC 8 /uL (0-23.9); URINE WBC 9 /uL (0-25.8)
[2021-07-26 18:47] LABS: CALCIUM 8.5 mg/dL (8.5-10.1)
[2021-07-26 18:48] LABS: ALBUMIN 3.9 g/dl (3.4-5.0); BLOOD UREA NITROGEN 9.8 mg/dL (7-18)
[2021-07-26 18:51] LABS: CREATININE 0.7 mg/dL (0.55-1.3)
[2021-07-26 18:52] LABS: TOT PROT 8.2 g/dl (6.4-8.2)
[2021-07-26 18:53] LABS: BILIRUBIN,TOTAL 0.2 mg/dL (0.2-1)
[2021-07-26] MEDS ORDERED: ACETAMINOPHEN 1000 MG/100 ML BAG IVPB ONE (21:48)
[2021-07-26] MEDS ORDERED: PIPERACILLIN/TAZOB 4.5 GM 4.5 GM in DEXTROSE 5%-WATER 100 ML IVPB ONE (22:04)
[2021-07-26] MEDS ORDERED: ACETAMINOPHEN INJECTION 100 ML IVPB ONE (22:16)
[2021-07-26] MEDS ORDERED: PIPERACILLIN/TAZOB 4.5 GM 4.5 GM/100 ML BAG IVPB ONE (22:16)
[2021-07-26] MEDS: SODIUM CHLORIDE 1,000 ML IV SCH (23:11)
[2021-07-26] MEDS ORDERED: ONDANSETRON 4 MG/2 ML VIAL IVPUSH PRN (23:52)
[2021-07-27] MEDS ORDERED: ALBUTEROL SO4 HFA INHALER IH PRN ×2 (00:21→16:34)
[2021-07-27 03:41] VITALS: BMI 34.4
[2021-07-27] MEDS ORDERED: ACETAMINOPHEN 1000 MG/100 ML BAG IVPB PRN ×2 (04:00→16:34)
[2021-07-27] MEDS ORDERED: DEXTROSE 5%-WATER 100 ML IVPB ONE ×3 (04:57→17:35)
[2021-07-27] MEDS ORDERED: PIPERACILLIN/TAZOBACTAM 4.5 GM VIAL IVPB ONE ×3 (04:57→17:35)
[2021-07-27] MEDS: SODIUM CHLORIDE 1,000 ML IV SCH (05:37)
[2021-07-27] MEDS: PIPERACILLIN/TAZOB 4.5 GM 4.5 GM in DEXTROSE 5%-WATER 100 ML IVPB SCH ×2 (05:37→11:37)
[2021-07-27] MEDS ORDERED: PIPERACILLIN/TAZOB 4.5 GM 4.5 GM in DEXTROSE 5%-WATER 100 ML IVPB SCH ×2 (06:00→18:00)
[2021-07-27] MEDS ORDERED: KETOROLAC TROMETHAMINE 15 MG/ML VIAL IVPUSH ONE (09:03)
[2021-07-27 09:18] LABS: BASO % 0.5 % (0-2.0); EOS % 5.5 % (0-4.5); HEMATOCRIT 34.2 % (32.4-45.2); HEMOGLOBIN 11.9 GM/dL (10.7-15.3); LYMPH % 52.4 % (8-40); MCH 31.7 pg (25.7-33.7); MCHC 34.9 g/dl (32.0-36.0); MEAN CELL VOLUME 90.9 fl (80-96); MEAN PLT VOLUME 9.2 fl (7.5-11.1); MONO % 11.5 % (3.8-10.2); NEUT % 30.1 % (42.8-82.8); PLATELET COUNT 159 10^3/uL (134-434); RBC 3.76 M/mm3 (3.60-5.2); RDW 12.8 % (11.6-15.6); WHITE BLOOD COUNT 2.1 K/mm3 (4.0-10.0)
[2021-07-27 09:20] LABS: CALCIUM 8.7 mg/dL (8.5-10.1)
[2021-07-27 09:21] LABS: BLOOD UREA NITROGEN 6.2 mg/dL (7-18)
[2021-07-27 09:24] LABS: CREATININE 0.7 mg/dL (0.55-1.3)
[2021-07-27] MEDS ORDERED: SUCCINYLCHOLINE CHLORIDE 200 MG/10 ML SYRINGE ONE (13:43)
[2021-07-27] MEDS ORDERED: PROPOFOL 20 ML ONE (13:43)
[2021-07-27] MEDS ORDERED: ROCURONIUM BROMIDE 50 MG/5 ML SYRINGE ONE (13:43)
[2021-07-27] MEDS ORDERED: MIDAZOLAM HCL 2 MG/2 ML SINGLE DOSE VIAL ONE (13:43)
[2021-07-27] MEDS ORDERED: BUPIVACAINE HCL/PF 0.5% (5MG/ML) 10 ML VIAL ONE (14:05)
[2021-07-27] MEDS ORDERED: ONDANSETRON 4 MG/2 ML VIAL IVPUSH PRN ×2 (14:11→16:34)
[2021-07-27] MEDS ORDERED: LACTATED RINGERS SOLUTION 1,000 ML IV SCH (14:15)
[2021-07-27] MEDS ORDERED: LIDOCAINE HCL/PF 2% SDV 5ML VIAL ONE (15:05)
[2021-07-27] MEDS ORDERED: DEXAMETHASONE SOD PHOSPHATE 4 MG/1 ML VIAL ONE (15:12)
[2021-07-27] MEDS ORDERED: NEOSTIGMINE METHYLSULFATE 0.5 MG/ML - 10 ML MDV ONE (15:46)
[2021-07-27] MEDS ORDERED: GLYCOPYRROLATE 0.2 MG/1 ML VIAL ONE (15:46)
[2021-07-27] MEDS ORDERED: BUPIVACAINE HCL/PF 0.5% (5MG/ML) 10 ML VIAL IJ ONE (15:52)
[2021-07-27] MEDS ORDERED: oxyCODONE HCL 5 MG TABLET PO PRN (16:16)
[2021-07-27] MEDS ORDERED: SODIUM CHLORIDE 1,000 ML IV SCH (16:34)
[2021-07-28] MEDS ORDERED: DEXTROSE 5%-WATER 100 ML IVPB ONE ×2 (00:52→08:35)
[2021-07-28] MEDS ORDERED: PIPERACILLIN/TAZOBACTAM 4.5 GM VIAL IVPB ONE ×2 (00:52→08:35)
[2021-07-28] MEDS: PIPERACILLIN/TAZOB 4.5 GM 4.5 GM in DEXTROSE 5%-WATER 100 ML IVPB SCH ×2 (01:11→09:44)
[2021-07-28] MEDS: IBUPROFEN 600 MG TABLET (FP) PO PRN ×2 (01:49→09:43)
[2021-07-28] MEDS: SODIUM CHLORIDE 1,000 ML IV SCH ×2 (01:49→17:52)
[2021-07-28 09:33] LABS: HEMATOCRIT 34.2 % (32.4-45.2); HEMOGLOBIN 11.5 GM/dL (10.7-15.3); MCH 30.8 pg (25.7-33.7); MCHC 33.7 g/dl (32.0-36.0); MEAN CELL VOLUME 91.3 fl (80-96); MEAN PLT VOLUME 9.1 fl (7.5-11.1); PLATELET COUNT 190 10^3/uL (134-434); RBC 3.74 M/mm3 (3.60-5.2); RDW 12.8 % (11.6-15.6); WHITE BLOOD COUNT 2.9 K/mm3 (4.0-10.0)
[2021-07-28 09:58] LABS: ALBUMIN 3.5 g/dl (3.4-5.0); CALCIUM 8.8 mg/dL (8.5-10.1)
[2021-07-28 09:59] LABS: BLOOD UREA NITROGEN 7.5 mg/dL (7-18)
[2021-07-28 10:01] LABS: CREATININE 0.8 mg/dL (0.55-1.3)
[2021-07-28 10:03] LABS: BILIRUBIN,TOTAL 0.6 mg/dL (0.2-1); TOT PROT 7.3 g/dl (6.4-8.2)
[2021-07-28] MEDS: traMADol HCL 50 MG TABLET PO PRN (12:01)
[2021-07-28] MEDS: POLYETHYLENE GLYCOL (HEALTHYLAX) 3350 17 GM PACKET PO SCH (12:01)
[2021-07-28] MEDS: DOCUSATE SODIUM 100 MG CAPSULE (FP) PO PRN (12:01)
[2021-07-28] MEDS ORDERED: DEXTROSE 5%-WATER - 50 ML IVPB ONE (16:55)
[2021-07-28] MEDS ORDERED: PIPERACILLIN/TAZOBACTAM 3.375 GM VIAL IVPB ONE (16:55)
[2021-07-28] MEDS: PIPERACILLIN/TAZOB 3.375 GM 3.375 GM in DEXTROSE 5%-WATER - 50 ML IVPB SCH (17:53)
[2021-07-29] MEDS ORDERED: PIPERACILLIN/TAZOBACTAM 3.375 GM VIAL IVPB ONE ×2 (00:57→08:03)
[2021-07-29] MEDS ORDERED: DEXTROSE 5%-WATER - 50 ML IVPB ONE ×2 (00:57→08:03)
[2021-07-29] MEDS: PIPERACILLIN/TAZOB 3.375 GM 3.375 GM in DEXTROSE 5%-WATER - 50 ML IVPB SCH ×2 (01:22→09:43)
[2021-07-29] MEDS: SODIUM CHLORIDE 1,000 ML IV SCH (09:25)
[2021-07-29] MEDS: DOCUSATE SODIUM 100 MG CAPSULE (FP) PO PRN (09:43)
[2021-07-29] MEDS: POLYETHYLENE GLYCOL (HEALTHYLAX) 3350 17 GM PACKET PO SCH (09:43)
[2021-07-29 10:19] LABS: HEMATOCRIT 32.6 % (32.4-45.2); HEMOGLOBIN 11.4 GM/dL (10.7-15.3); MCH 31.8 pg (25.7-33.7); MCHC 34.9 g/dl (32.0-36.0); MEAN CELL VOLUME 91.2 fl (80-96); MEAN PLT VOLUME 8.6 fl (7.5-11.1); PLATELET COUNT 167 10^3/uL (134-434); RBC 3.57 M/mm3 (3.60-5.2); RDW 12.8 % (11.6-15.6); WHITE BLOOD COUNT 4.5 K/mm3 (4.0-10.0)
[2021-07-29 10:34] LABS: BLOOD UREA NITROGEN 10.3 mg/dL (7-18); CALCIUM 8.7 mg/dL (8.5-10.1)
[2021-07-29 10:35] LABS: ALBUMIN 3.3 g/dl (3.4-5.0)
[2021-07-29 10:37] LABS: CREATININE 0.7 mg/dL (0.55-1.3)
[2021-07-29 10:39] LABS: BILIRUBIN,TOTAL 0.8 mg/dL (0.2-1); TOT PROT 7.3 g/dl (6.4-8.2)
[2021-07-29] MEDS: traMADol HCL 50 MG TABLET PO PRN (10:44)
[2021-07-29 13:29] VITALS: BP 125/83; PULSE 63; TEMP 98.1
[2021-07-29] MEDS ORDERED: AMOX TR/POT CLAV 500MG/125MG TABLETS (FP) PO SCH (17:30)
== END 2021-07-29 16:18 | disposition home or self-care (01) | DRG 225 ==
LOC: JER 14:20 → JERBED 23:56 → J5S 07-27 02:29
PROVIDERS: ADMIT Hospitalist; ATTEND Family Medicine
PROC: 0DTJ4ZZ Resection of Appendix, Percutaneous Endoscopic Approach (ICD-10-PCS; principal; 2021-07-27 14:00)
DX: K35.80 Unspecified acute appendicitis (principal); D72.819 Decreased white blood cell count, unspecified; R10.31 Right lower quadrant pain
CPT/HCPCS: 36415; 74177-TC; 76830-TC; 80048; 80053; 81003; 84703; 85025; 85027; 86850; 86900; 86901; 87040; 87086; 88304-TC; 93005; 93010; 94010; 94760; 99285-25; C9803-CS; Q9967; U0003; U0005

== ENCOUNTER 2021-10-27 05:48 | Emergency (ER) | payer OTHER ==
[2021-10-27 06:08] VITALS: BMI 33.9
[2021-10-27] MEDS ORDERED: ACETAMINOPHEN 325 MG TABLET (FP) PO ONE (07:32)
[2021-10-27] MEDS ORDERED: ACETAMINOPHEN 325 MG TABLET (FP) ONE (07:49)
[2021-10-27 08:22] LABS: URINE APPEARANCE CLEAR; URINE BILIRUBIN NEGATIVE (NEGATIVE); URINE COLOR YELLOW; URINE GLUCOSE (UA) NEGATIVE (NEGATIVE); URINE KETONE NEGATIVE (NEGATIVE); URINE LEUK ESTERASE NEGATIVE (NEGATIVE); URINE NITRITE NEGATIVE (NEGATIVE); URINE PROTEIN NEGATIVE (NEGATIVE); URINE UROBILINOGEN 0.2 mg/dL (0.2-1.0)
[2021-10-27] MEDS ORDERED: IBUPROFEN 600 MG TABLET (FP) PO ONE ×2 (08:33→08:36)
[2021-10-27 10:25] VITALS: BP 154/96; PULSE 61; TEMP 97.9
== END 2021-10-27 10:15 | disposition home or self-care (01) ==
LOC: JER 05:48
DX: R42 Dizziness and giddiness (principal); J06.9 Acute upper respiratory infection, unspecified
CPT/HCPCS: 0241U-QW; 71046-TC-FY; 81003; 84703; 87086; 93005; 93010; 99285-25

== ENCOUNTER 2022-02-05 06:11 | Emergency (ER) | payer OTHER ==
[2022-02-05 06:43] VITALS: BP 141/90; PULSE 86; RESP 20; TEMP 98.1; BMI 34.8
[2022-02-05] MEDS ORDERED: ACETAMINOPHEN 500 MG TABLET (FP) PO ONE (07:37)
[2022-02-05] MEDS ORDERED: IBUPROFEN 400 MG TABLET (FP) PO ONE ×2 (07:47)
== END 2022-02-05 08:05 | disposition home or self-care (01) ==
LOC: JER 06:11
DX: B34.9 Viral infection, unspecified (principal)
CPT/HCPCS: 0241U-QW; 99283-25

== ENCOUNTER 2022-06-18 07:37 | Emergency (ER) | payer OTHER ==
[2022-06-18 07:50] VITALS: BP 119/77; PULSE 82; RESP 18; TEMP 98.2; BMI 33.9
[2022-06-18] MEDS ORDERED: FAMOTIDINE 20 MG/50 ML IVPB 20 MG/50 ML MG IVPB ONE ×2 (08:13→08:20)
[2022-06-18] MEDS ORDERED: MAG HYDROX/AL HYDROX/SIMETH 30 ML UNIT-DOSE CUP PO ONE (08:13)
[2022-06-18] MEDS ORDERED: LACTATED RINGERS SOLUTION 1000 ML INFUS.BAG IV ONE (08:14)
[2022-06-18] MEDS ORDERED: ACETAMINOPHEN 1000 MG/100 ML BAG IVPB ONE (08:14)
[2022-06-18] MEDS ORDERED: ONDANSETRON 4 MG/2 ML VIAL IVPUSH ONE (08:17)
[2022-06-18] MEDS ORDERED: ACETAMINOPHEN INJECTION 100 ML IVPB ONE (08:20)
[2022-06-18] MEDS ORDERED: ONDANSETRON 4 MG/2 ML VIAL ONE (08:20)
[2022-06-18] MEDS ORDERED: MAG HYDROX/AL HYDROX/SIMETH 30 ML UNIT-DOSE CUP ONE ×2 (08:20→08:22)
[2022-06-18 08:58] LABS: BASO % 0.6 % (0-2.0); EOS % 3.5 % (0-4.5); HEMATOCRIT 34.3 % (32.4-45.2); HEMOGLOBIN 11.5 GM/dL (10.7-15.3); LYMPH % 38.7 % (8-40); MCH 31.5 pg (25.7-33.7); MCHC 33.6 g/dl (32.0-36.0); MEAN CELL VOLUME 93.9 fl (80-96); MEAN PLT VOLUME 8.6 fl (7.5-11.1); MONO % 9.1 % (3.8-10.2); NEUT % 48.1 % (42.8-82.8); PLATELET COUNT 196 10^3/uL (134-434); RBC 3.65 M/mm3 (3.60-5.2); RDW 13.1 % (11.6-15.6); WHITE BLOOD COUNT 3.2 K/mm3 (4.0-10.0)
[2022-06-18 10:25] LABS: ALBUMIN 3.4 g/dl (3.4-5.0); BLOOD UREA NITROGEN 6.3 mg/dL (7-18); CALCIUM 8.5 mg/dL (8.5-10.1)
[2022-06-18 10:27] LABS: MAGNESIUM 2.1 mg/dL (1.8-2.4)
[2022-06-18 10:28] LABS: CREATININE 0.7 mg/dL (0.55-1.3); PHOSPHOROUS 2.3 mg/dL (2.5-4.9)
[2022-06-18 10:30] LABS: BILIRUBIN,TOTAL 0.3 mg/dL (0.2-1); TOT PROT 7.5 g/dl (6.4-8.2)
== END 2022-06-18 12:08 | disposition home or self-care (01) ==
LOC: JER 07:37
PROC: 3E0333Z Introduction of Anti-inflammatory into Peripheral Vein, Percutaneous Approach (ICD-10-PCS; principal; 2022-06-18)
PROC: 3E033GC Introduction of Other Therapeutic Substance into Peripheral Vein, Percutaneous Approach (ICD-10-PCS; 2022-06-18)
PROC: 3E033GC Introduction of Other Therapeutic Substance into Peripheral Vein, Percutaneous Approach (ICD-10-PCS; 2022-06-18)
DX: R10.13 Epigastric pain (principal); R11.0 Nausea
CPT/HCPCS: 0241U-QW; 36415; 76705-TC; 80053; 83690; 83735; 84100; 84703; 85025; 99284-25

== ENCOUNTER 2024-11-05 08:14 | Emergency (ER) | payer OTHER ==
[2024-11-05 08:20] VITALS: BMI 33.9
[2024-11-05] MEDS ORDERED: IBUPROFEN 400 MG TABLET (FP) PO ONE (09:27)
[2024-11-05] MEDS: IBUPROFEN 400 MG TABLET (FP) PO ONE (09:29)
[2024-11-05 10:15] VITALS: BP 137/96; PULSE 82; RESP 16; TEMP 98.7
== END 2024-11-05 10:21 | disposition home or self-care (01) ==
LOC: JERFT 08:14
DX: S86.912A Strain of unspecified muscle(s) and tendon(s) at lower leg level, left leg, initial encounter (principal); X50.1XXA Overexertion from prolonged static or awkward postures, initial encounter
CPT/HCPCS: 73562-TC-LT-FY; 99283-25